=== PATIENT | male | born 1955 | race African-American/Black ===

== ENCOUNTER 2017-09-28 20:36 | Inpatient (IN) | payer OTHER, MEDICAID ==
[~2017-09-28] VITALS: Ht 185.4 cm; Wt 81.6 kg
[~2017-09-28 20:36] MED LIST: ATOR40TA70 PO; CARV3.1242 PO; CETI10TA6 PO; DIPH25CA83 PO; NICO1PAT15 TP; NITR0.4T49 SL
[2017-09-29] MEDS ORDERED: ASPIRIN 81MG TABLET PO STA (03:30)
[2017-09-29] MEDS ORDERED: NITROGLYCERIN OINT 1GM/INCH UDPKT TD STA (03:30)
[2017-09-29 03:58] LABS: BASOPHILS % 0.4 % (0.0-2.0); EOSINOPHILS % 0.7 % (0.0-5.0); HEMATOCRIT. 37.1 % (42.0-52.0); HEMOGLOBIN. 12.4 g/dL (14.0-18.0); MEAN CORPUSCULAR HEMOGLOBIN 33.7 pg (28.0-32.0); MEAN CORPUSCULAR VOLUME 100.2 fL (80.0-94.0); MEAN PLATELET VOLUME 7.8 fl (7.4-10.4); MONOCYTES % 11.6 % (2.0-8.0); NEUTROPHILS % 68.3 % (40.0-76.0); PLATELET 90 x1000/uL (130-400); RED CELL DISTRIBUTION WIDTH 13.7 % (11.6-14.6)
[2017-09-29 04:03] LABS: CARBON DIOXIDE 26 mEq/L (21-32); CHLORIDE 104 mEq/L (98-107); TROPONIN I < 0.02 ng/mL (0.00-0.04)
[2017-09-29] MEDS ORDERED: AZITHROMYCIN 500 MG in DEXT 5% WATER 250 ML IV NR (04:30)
[2017-09-29] MEDS ORDERED: CEFTRIAXONE 1 G PREMIX 50 ML IV NR (04:30)
[2017-09-29] MEDS ORDERED: AZITHROMYCIN 500 MG in SODIUM CHLORIDE 0.9% 250 ML IV NR (05:29)
[2017-09-29] MEDS ORDERED: IPRATROPIUM/ALBUTEROL 0.5-3(2.5)MG/3ML NEB INH PRN (09:45)
[2017-09-29] MEDS ORDERED: GUAIFENESIN 200MG/10ML SUGAR FREE UDC PO PRN (09:45)
[2017-09-29] MEDS ORDERED: NITROGLYCERIN 0.4MG TABLET SL SL PRN (09:45)
[2017-09-29] MEDS ORDERED: ZOLPIDEM TARTRATE 5MG TABLET PO PRN (09:45)
[2017-09-29] MEDS ORDERED: DOCUSATE SODIUM 100MG CAPSULE PO PRN (09:45)
[2017-09-29] MEDS ORDERED: MAGNESIUM/ALUMINUM HYDROXIDE/SIMETHICONE 30ML UDC PO PRN (09:45)
[2017-09-29] MEDS ORDERED: NA PHOS,M-B/NA PHOS,DI-BA ENEMA 118ML PR PRN (09:45)
[2017-09-29] MEDS ORDERED: LORAZEPAM 0.5MG TABLET PO PRN (09:45)
[2017-09-29] MEDS ORDERED: DIPHENHYDRAMINE 50MG/ML VIAL IV PRN (09:45)
[2017-09-29] MEDS ORDERED: ACETAMINOPHEN 325MG TABLET PO PRN (09:45)
[2017-09-29] MEDS ORDERED: CLONIDINE 0.1MG TABLET PO PRN (09:45)
[2017-09-29] MEDS ORDERED: ONDANSETRON HCL 4MG/2ML VIAL IV PRN (09:45)
[2017-09-29] MEDS ORDERED: KETOROLAC 15MG/ML VIAL IV PRN (09:45)
[2017-09-29 11:04] LABS: FOLIC ACID (FOLATE) SERUM 10.8 ng/mL (>5.38)
[2017-09-29] MEDS ORDERED: KETOROLAC 15MG/ML VIAL IV NR (14:30)
[2017-09-29 15:30] LABS: CREATINE KINASE 98 IU/L (39-308); CREATINE KINASE MB FRACTION 1.4 ng/mL (0.5-3.6); TROPONIN I < 0.02 ng/mL (0.00-0.04)
[2017-09-29 18:00] VITALS: BP 99/62
[2017-09-29 20:00] VITALS: BP 130/84
[2017-09-29] MEDS: GUAIFENESIN/DM 600MG/30MG ER TAB 12HR PO SCH (20:55)
[2017-09-29] MEDS: FAMOTIDINE 20MG/2ML VIAL IV SCH (20:55)
[2017-09-29] MEDS ORDERED: INFLUENZA VIRUS VACCINE 0.5ML SYR IM ONE (21:00)
[2017-09-29 23:24] LABS: CREATINE KINASE 106 IU/L (39-308); CREATINE KINASE MB FRACTION 1.3 ng/mL (0.5-3.6); TROPONIN I < 0.02 ng/mL (0.00-0.04)
[2017-09-30 00:17] VITALS: BP 105/78
[2017-09-30 00:33] LABS: *AMPHETAMINES SCREEN URINE NEGATIVE (NEGATIVE); *BARBITURATES SCREEN URINE NEGATIVE (NEGATIVE); *BENZODIAZEPINES SCREEN URINE NEGATIVE (NEGATIVE); *COCAINE SCREEN URINE NEGATIVE (NEGATIVE); CANNABINOID URINE SCREEN NEGATIVE (NEGATIVE); METHADONE URINE SCREEN NEGATIVE (NEGATIVE); OPIATES URINE SCREEN NEGATIVE (NEGATIVE); PHENCYCLIDINE URINE SCREEN NEGATIVE (NEGATIVE)
[2017-09-30 04:00] VITALS: BP 110/69
[2017-09-30] MEDS ORDERED: AZITHROMYCIN 500 MG in DEXT 5% WATER 250 ML IV SCH (06:00)
[2017-09-30 08:00] VITALS: BP 158/70
[2017-09-30] MEDS: FAMOTIDINE 20MG/2ML VIAL IV SCH (08:21)
[2017-09-30] MEDS: GUAIFENESIN/DM 600MG/30MG ER TAB 12HR PO SCH (08:21)
[2017-09-30] MEDS ORDERED: CEFTRIAXONE 1 G PREMIX 50 ML IV SCH (09:00)
[2017-09-30] MEDS ORDERED: ASPIRIN 325MG EC TABLET PO SCH (09:00)
[2017-09-30 11:14] VITALS: BP 104/72
[2017-09-30 12:00] VITALS: BP 117/78
[2017-10-01] MEDS ORDERED: ENOXAPARIN 40MG/0.4ML SYR SUBCUT SCH (11:00)
== END 2017-09-30 13:22 | disposition home or self-care (01) | DRG 139 ==
LOC: ER 20:36 → EDBEDREQ 09-29 05:23 → ENRESERV 09-29 17:13 → 8WST 09-29 17:13
PROVIDERS: ADMIT Internal Medicine; ATTEND Internal Medicine
DX: J18.9 Pneumonia, unspecified organism (principal); E44.0 Moderate protein-calorie malnutrition; R07.89 Other chest pain; D63.8 Anemia in other chronic diseases classified elsewhere; Z68.23 Body mass index [BMI] 23.0-23.9, adult; E78.00 Pure hypercholesterolemia, unspecified; I10 Essential (primary) hypertension; Z59.0 Homelessness; Z87.891 Personal history of nicotine dependence
CPT/HCPCS: 36415; 71045; 80053; 80061; 80305; 82550; 82553; 82607; 82746; 83036; 83540; 83550; 83605; 83880; 84484; 85025; 87040; 90686; 93005; 93970; 96365; 96367; 99285; J0456; J0696; J3490; J7050; J7060

== ENCOUNTER 2018-10-11 17:09 | Inpatient (IN) | payer MEDICAID ==
[~2018-10-11] VITALS: Ht 185.4 cm; Wt 77.6 kg
[2018-10-11] MEDS ORDERED: ONDANSETRON HCL 4MG/2ML INJ IV STA (23:01)
[2018-10-11] MEDS ORDERED: MORPHINE SULFATE 10 MG/ML CPJ IV ONE (23:15)
[2018-10-12 00:09] LABS: CHLORIDE 106 mEq/L (98-107)
[2018-10-12 00:11] LABS: INR 1.1; PROTHROMBIN TIME 11.1 sec (9.1-11.1)
[2018-10-12 00:12] LABS: BASOPHILS % 0.6 % (0.0-2.0); EOSINOPHILS % 2.2 % (0.0-5.0); HEMATOCRIT. 35.2 % (42.0-52.0); HEMOGLOBIN. 11.5 g/dL (14.0-18.0); LYMPHOCYTES % 17.3 % (20.0-50.0); MEAN CORPUSCULAR HEMOGLOBIN 30.3 pg (28.0-32.0); MEAN CORPUSCULAR VOLUME 92.3 fL (80.0-94.0); MEAN PLATELET VOLUME 8.5 fl (7.4-10.4); MONOCYTES % 11.2 % (2.0-8.0); NEUTROPHILS % 68.7 % (40.0-76.0); PLATELET 93 x1000/uL (130-400); RED BLOOD CELL COUNT 3.81 mill/uL (4.7-6.1); RED CELL DISTRIBUTION WIDTH 16.5 % (11.6-14.6)
[2018-10-12] MEDS ORDERED: IOHEXOL-350 100 ML BOTTLE ONE (02:39)
[2018-10-12] MEDS ORDERED: PROPOFOL 200MG/20ML VIAL IV NR (02:45)
[2018-10-12] MEDS ORDERED: LIDOCAINE 1%/EPI 1:100,000 10 ML VIAL IJ ONE (03:45)
[2018-10-12] MEDS ORDERED: LIDOCAINE HCL/EPINEPHRINE 1%-EPI 1:100,000 20 ML VIAL ONE (03:53)
[2018-10-12] MEDS ORDERED: MORPHINE SULFATE 10 MG/ML CPJ IV ONE (06:00)
[2018-10-12] MEDS ORDERED: HYDROMORPHONE HCL/PF 2MG/ML CPJ IV PRN (08:30)
[2018-10-12] MEDS ORDERED: HYDROCODONE/ACETAMINOPHEN 5/325MG TABLET PO PRN ×2 (08:30)
[2018-10-12] MEDS ORDERED: ACETAMINOPHEN 325MG TABLET PO PRN (08:30)
[2018-10-12] MEDS ORDERED: IPRATROPIUM/ALBUTEROL 0.5-3(2.5)MG/3ML NEB HHN PRN (09:00)
[2018-10-12] MEDS: HYDROMORPHONE HCL/PF 2MG/ML CPJ IV PRN ×3 (10:40→20:40)
[2018-10-12 12:00] VITALS: BP 145/94
[2018-10-12] MEDS: NICOTINE 14MG PATCH TD SCH (12:00)
[2018-10-12 12:36] VITALS: BP 145/94
[2018-10-12 16:00] VITALS: BP 135/95
[2018-10-12] MEDS ORDERED: PNEUMOCOCCAL 23-VAL P-SAC VAC 0.5 ML IM ONE (16:00)
[2018-10-12 17:05] LABS: CREATINE KINASE MB FRACTION 5.9 ng/mL (0.5-3.6)
[2018-10-12 17:45] LABS: CLARITY URINE CLEAR (CLEAR); COLOR URINE YELLOW (YELLOW); KETONES URINE NEGATIVE (NEGATIVE); LEUKOCYTE ESTERASE URINE NEGATIVE (NEGATIVE); NITRITE URINE NEGATIVE (NEGATIVE); OCCULT BLOOD URINE NEGATIVE (NEGATIVE); PROTEIN URINE NEGATIVE (NEGATIVE); SPECIFIC GRAVITY URINE 1.035 (1.005-1.030)
[2018-10-12 18:23] LABS: *BENZODIAZEPINES SCREEN URINE NEGATIVE (NEGATIVE); *COCAINE SCREEN URINE NEGATIVE (NEGATIVE); METHADONE URINE SCREEN NEGATIVE (NEGATIVE); OPIATES URINE SCREEN PRESUMTIVE POSITIVE (NEGATIVE)
[2018-10-12 18:24] LABS: *AMPHETAMINES SCREEN URINE NEGATIVE (NEGATIVE); *BARBITURATES SCREEN URINE NEGATIVE (NEGATIVE); CANNABINOID URINE SCREEN NEGATIVE (NEGATIVE); PHENCYCLIDINE URINE SCREEN NEGATIVE (NEGATIVE)
[2018-10-12 20:00] VITALS: BP 131/96
[2018-10-13] VITALS (7 sets, daily range): BP systolic 116–131; BP diastolic 76–91
[2018-10-13] MEDS: BUDESONIDE 0.5MG/2ML NEB HHN SCH ×3 (01:55→21:04)
[2018-10-13] MEDS: IPRATROPIUM/ALBUTEROL 0.5-3(2.5)MG/3ML NEB HHN SCH ×4 (01:56→21:03)
[2018-10-13] MEDS: HYDROMORPHONE HCL/PF 2MG/ML CPJ IV PRN ×5 (03:43→22:48)
[2018-10-13 08:32] LABS: BASOPHILS % 0.2 % (0.0-2.0); EOSINOPHILS % 1.5 % (0.0-5.0); HEMATOCRIT. 36.3 % (42.0-52.0); HEMOGLOBIN. 11.8 g/dL (14.0-18.0); LYMPHOCYTES % 13.2 % (20.0-50.0); MEAN CORPUSCULAR HEMOGLOBIN 30.2 pg (28.0-32.0); MEAN CORPUSCULAR VOLUME 92.4 fL (80.0-94.0); MEAN PLATELET VOLUME 8.3 fl (7.4-10.4); MONOCYTES % 11.9 % (2.0-8.0); NEUTROPHILS % 73.2 % (40.0-76.0); PLATELET 105 x1000/uL (130-400); RED BLOOD CELL COUNT 3.93 mill/uL (4.7-6.1); RED CELL DISTRIBUTION WIDTH 16.4 % (11.6-14.6)
[2018-10-13] MEDS: NICOTINE 14MG PATCH TD SCH (09:00)
[2018-10-13] MEDS ORDERED: HYDROCODONE/ACETAMINOPHEN 10/325MG TABLET PO PRN (19:20)
[2018-10-13] MEDS: DIPHENHYDRAMINE 50MG CAPSULE PO PRN (22:47)
[2018-10-14] VITALS: BP 124/75
[2018-10-14] MEDS: IPRATROPIUM/ALBUTEROL 0.5-3(2.5)MG/3ML NEB HHN SCH ×4 (01:04→20:56)
[2018-10-14 04:00] VITALS: BP 126/85
[2018-10-14] MEDS: HYDROMORPHONE HCL/PF 2MG/ML CPJ IV PRN ×4 (04:16→22:51)
[2018-10-14 07:23] LABS: BASOPHILS % 0.3 % (0.0-2.0); EOSINOPHILS % 1.7 % (0.0-5.0); HEMATOCRIT. 32.5 % (42.0-52.0); HEMOGLOBIN. 10.6 g/dL (14.0-18.0); LYMPHOCYTES % 11.6 % (20.0-50.0); MEAN CORPUSCULAR VOLUME 92.3 fL (80.0-94.0); MEAN PLATELET VOLUME 8.3 fl (7.4-10.4); MONOCYTES % 11.8 % (2.0-8.0); NEUTROPHILS % 74.6 % (40.0-76.0); PLATELET 84 x1000/uL (130-400); RED BLOOD CELL COUNT 3.52 mill/uL (4.7-6.1); RED CELL DISTRIBUTION WIDTH 16.5 % (11.6-14.6)
[2018-10-14 08:00] VITALS: BP 129/72
[2018-10-14] MEDS: BUDESONIDE 0.5MG/2ML NEB HHN SCH ×2 (08:11→20:56)
[2018-10-14] MEDS: NICOTINE 14MG PATCH TD SCH (09:00)
[2018-10-14 12:00] VITALS: BP 127/94
[2018-10-14] MEDS ORDERED: HYDROMORPHONE HCL/PF 2MG/ML CPJ IV PRN (12:30)
[2018-10-14] MEDS ORDERED: DEXT 5%/0.45% NACL 1000ML 1,000 ML IV SCH (12:30)
[2018-10-14] MEDS: HYDROCODONE/ACETAMINOPHEN 10/325MG TABLET PO PRN ×2 (13:16→18:21)
[2018-10-14 16:00] VITALS: BP 122/78
[2018-10-14] MEDS: SODIUM CHLORIDE 0.9% 1,000 ML IV SCH (16:39)
[2018-10-14 20:00] VITALS: BP_SYST 123; BP_SYST 178; BP_DIAS 71; BP_DIAS 86
[2018-10-14] MEDS: DIPHENHYDRAMINE 50MG CAPSULE PO PRN (22:54)
[2018-10-15] VITALS: BP 129/80
[2018-10-15] MEDS: SODIUM CHLORIDE 0.9% 1,000 ML IV SCH ×3 (01:00→21:05)
[2018-10-15] MEDS: IPRATROPIUM/ALBUTEROL 0.5-3(2.5)MG/3ML NEB HHN SCH ×4 (01:02→21:14)
[2018-10-15 04:00] VITALS: BP 116/85
[2018-10-15] MEDS: HYDROMORPHONE HCL/PF 2MG/ML CPJ IV PRN ×2 (04:01→18:13)
[2018-10-15 08:00] VITALS: BP 109/81
[2018-10-15] MEDS: NICOTINE 14MG PATCH TD SCH (09:00)
[2018-10-15 09:32] LABS: BASOPHILS % 0.2 % (0.0-2.0); HEMATOCRIT. 35.7 % (42.0-52.0); HEMOGLOBIN. 11.6 g/dL (14.0-18.0); LYMPHOCYTES % 7.1 % (20.0-50.0); MEAN CORPUSCULAR HEMOGLOBIN 30.6 pg (28.0-32.0); MEAN PLATELET VOLUME 8.3 fl (7.4-10.4); MONOCYTES % 9.4 % (2.0-8.0); NEUTROPHILS % 82.3 % (40.0-76.0); PLATELET 91 x1000/uL (130-400); RED BLOOD CELL COUNT 3.79 mill/uL (4.7-6.1); RED CELL DISTRIBUTION WIDTH 15.9 % (11.6-14.6)
[2018-10-15] MEDS: BUDESONIDE 0.5MG/2ML NEB HHN SCH (10:40)
[2018-10-15] MEDS: HYDROCODONE/ACETAMINOPHEN 10/325MG TABLET PO PRN ×2 (10:42→18:07)
[2018-10-15] MEDS: TAMSULOSIN HCL 0.4MG SR CAPSULE PO SCH (10:42)
[2018-10-15 10:53] LABS: CHLORIDE 108 mEq/L (98-107)
[2018-10-15] MEDS ORDERED: MAGNESIUM 2 G PREMIX 50 ML IV NR (11:00)
[2018-10-15 11:02] LABS: PHOSPHORUS 2.3 mg/dL (2.5-4.9)
[2018-10-15 12:00] VITALS: BP 116/80
[2018-10-15] MEDS: BENZONATATE 100MG CAPSULE PO PRN (14:27)
[2018-10-15 20:00] VITALS: BP 130/88
[2018-10-16] VITALS: BP 98/61
[2018-10-16] MEDS: IPRATROPIUM/ALBUTEROL 0.5-3(2.5)MG/3ML NEB HHN SCH ×4 (01:09→20:57)
[2018-10-16] MEDS: LORAZEPAM 2MG/ML CPJ IV PRN ×2 (01:17→08:49)
[2018-10-16] MEDS: SODIUM CHLORIDE 0.9% 1,000 ML IV SCH ×2 (06:39)
[2018-10-16 08:00] VITALS: BP 94/63
[2018-10-16] MEDS: TAMSULOSIN HCL 0.4MG SR CAPSULE PO SCH ×2 (08:49→08:59)
[2018-10-16] MEDS: NICOTINE 14MG PATCH TD SCH (08:50)
[2018-10-16] MEDS ORDERED: POTASSIUM-SODIUM PHOSPHATE POWDER PACKET PO NR (10:30)
[2018-10-16 11:46] LABS: CHLORIDE 110 mEq/L (98-107)
[2018-10-16 11:49] LABS: PHOSPHORUS 1.8 mg/dL (2.5-4.9)
[2018-10-16 13:34] LABS: HEMATOCRIT. 36.8 % (42.0-52.0); HEMOGLOBIN. 11.8 g/dL (14.0-18.0); MEAN CORPUSCULAR HEMOGLOBIN 30.6 pg (28.0-32.0); MEAN CORPUSCULAR VOLUME 94.9 fL (80.0-94.0); PLATELET 66 x1000/uL (130-400); RED BLOOD CELL COUNT 3.87 mill/uL (4.7-6.1); RED CELL DISTRIBUTION WIDTH 16.5 % (11.6-14.6)
[2018-10-16] MEDS ORDERED: PREDNISONE 20MG TABLET PO NR (15:00)
[2018-10-16 16:00] VITALS: BP 92/56
[2018-10-16 16:01] LABS: BG BASE EXCESS -1.4 mmol/L (-2.0-2.0); BG CARBOXYHEMOGLOBIN 0.9 % (0.5-1.5); BG DEOXYHEMOGLOBIN 16.1 % (0.0-5.0); BG METHEMOGLOBIN 0.2 % (0.0-1.5); BG OXYGEN SATURATION 83.7 % (92.0-98.5); BG OXYHEMOGLOBIN 82.8 % (94.0-97.0); BG PCO2 37.4 mmHg (35.0-45.0); BG PH 7.407 (7.350-7.450); BG SAMPLE SITE RIGHT RADIAL; BG TOTAL HEMOGLOBIN 11.2 g/dL (12.0-18.0); BG VENT MODE ROOM AIR
[2018-10-16 18:49] LABS: PLATELET ESTIMATE DECREASED
[2018-10-16 20:00] VITALS: BP 119/72
[2018-10-17] VITALS: BP 104/60
[2018-10-17] MEDS: IPRATROPIUM/ALBUTEROL 0.5-3(2.5)MG/3ML NEB HHN SCH ×4 (01:44→22:26)
[2018-10-17 04:00] VITALS: BP 96/70
[2018-10-17 08:00] VITALS: BP 102/66
[2018-10-17] MEDS: TAMSULOSIN HCL 0.4MG SR CAPSULE PO SCH (08:46)
[2018-10-17] MEDS: PREDNISONE 20MG TABLET PO SCH (08:46)
[2018-10-17] MEDS: NICOTINE 14MG PATCH TD SCH (08:47)
[2018-10-17] MEDS ORDERED: POTASSIUM PHOS,M-BASIC-D-BASIC 20 MMOL in DEXT 5% WATER 243.3333 ML IV ONE (11:00)
[2018-10-17 16:24] VITALS: BP 118/74
[2018-10-17 16:25] LABS: HEMATOCRIT. 36.8 % (42.0-52.0); HEMOGLOBIN. 11.8 g/dL (14.0-18.0); MEAN CORPUSCULAR HEMOGLOBIN 30.1 pg (28.0-32.0); MEAN CORPUSCULAR VOLUME 93.4 fL (80.0-94.0); MEAN PLATELET VOLUME 8.1 fl (7.4-10.4); PLATELET 65 x1000/uL (130-400); RED BLOOD CELL COUNT 3.94 mill/uL (4.7-6.1); RED CELL DISTRIBUTION WIDTH 16.4 % (11.6-14.6)
[2018-10-17 16:53] LABS: CHLORIDE 105 mEq/L (98-107)
[2018-10-17 16:58] LABS: PHOSPHORUS 2.8 mg/dL (2.5-4.9)
[2018-10-17 18:16] LABS: PLATELET ESTIMATE DECREASED
[2018-10-17 20:00] VITALS: BP 102/64
[2018-10-18] VITALS: BP 105/68
[2018-10-18] MEDS: BENZONATATE 100MG CAPSULE PO PRN (00:13)
[2018-10-18] MEDS: HYDROCODONE/ACETAMINOPHEN 10/325MG TABLET PO PRN (00:18)
[2018-10-18] MEDS: IPRATROPIUM/ALBUTEROL 0.5-3(2.5)MG/3ML NEB HHN SCH ×3 (02:00→22:17)
[2018-10-18] MEDS: HYDROMORPHONE HCL/PF 2MG/ML CPJ IV PRN (02:24)
[2018-10-18 04:00] VITALS: BP 110/76
[2018-10-18] MEDS: LORAZEPAM 2MG/ML CPJ IV PRN ×3 (05:24→20:52)
[2018-10-18 07:19] LABS: HEMATOCRIT. 31.2 % (42.0-52.0); HEMOGLOBIN. 10.3 g/dL (14.0-18.0); MEAN CORPUSCULAR HEMOGLOBIN 30.5 pg (28.0-32.0); MEAN CORPUSCULAR VOLUME 92.1 fL (80.0-94.0); MEAN PLATELET VOLUME 8.5 fl (7.4-10.4); PLATELET 71 x1000/uL (130-400); RED BLOOD CELL COUNT 3.39 mill/uL (4.7-6.1); RED CELL DISTRIBUTION WIDTH 16.2 % (11.6-14.6)
[2018-10-18 07:40] LABS: CHLORIDE 106 mEq/L (98-107)
[2018-10-18 08:00] VITALS: BP 103/64
[2018-10-18] MEDS: NICOTINE 14MG PATCH TD SCH (09:00)
[2018-10-18] MEDS: TAMSULOSIN HCL 0.4MG SR CAPSULE PO SCH (09:19)
[2018-10-18] MEDS: PREDNISONE 20MG TABLET PO SCH (09:20)
[2018-10-18 10:22] LABS: PLATELET ESTIMATE DECREASED
[2018-10-18] MEDS ORDERED: LORAZEPAM 2MG/ML CPJ IV SCH (10:30)
[2018-10-18 16:24] VITALS: BP 123/79
[2018-10-18 20:00] VITALS: BP 116/84
[2018-10-19] VITALS: BP 107/68
[2018-10-19 04:00] VITALS: BP 104/58
[2018-10-19] MEDS: IPRATROPIUM/ALBUTEROL 0.5-3(2.5)MG/3ML NEB HHN SCH ×4 (04:01→20:57)
[2018-10-19] MEDS: HYDROMORPHONE HCL/PF 2MG/ML CPJ IV PRN ×2 (05:57→22:40)
[2018-10-19 08:00] VITALS: BP 120/74
[2018-10-19] MEDS: NICOTINE 14MG PATCH TD SCH (09:00)
[2018-10-19 09:47] LABS: HEMATOCRIT. 32.7 % (42.0-52.0); HEMOGLOBIN. 10.8 g/dL (14.0-18.0); MEAN CORPUSCULAR HEMOGLOBIN 30.5 pg (28.0-32.0); MEAN CORPUSCULAR VOLUME 92.5 fL (80.0-94.0); MEAN PLATELET VOLUME 8.6 fl (7.4-10.4); PLATELET 75 x1000/uL (130-400); RED BLOOD CELL COUNT 3.53 mill/uL (4.7-6.1); RED CELL DISTRIBUTION WIDTH 16.2 % (11.6-14.6)
[2018-10-19] MEDS: TAMSULOSIN HCL 0.4MG SR CAPSULE PO SCH (09:56)
[2018-10-19] MEDS: PREDNISONE 20MG TABLET PO SCH (09:56)
[2018-10-19 10:02] LABS: CHLORIDE 104 mEq/L (98-107)
[2018-10-19 10:16] LABS: PHOSPHORUS 3.3 mg/dL (2.5-4.9)
[2018-10-19 12:00] VITALS: BP 98/69
[2018-10-19 16:00] VITALS: BP 110/76
[2018-10-19 20:00] VITALS: BP 129/84
[2018-10-19 21:26] LABS: PLATELET ESTIMATE DECREASED
[2018-10-20] VITALS: BP 109/74
[2018-10-20] MEDS: IPRATROPIUM/ALBUTEROL 0.5-3(2.5)MG/3ML NEB HHN SCH ×4 (02:23→21:14)
[2018-10-20] MEDS: DIPHENHYDRAMINE 50MG CAPSULE PO PRN (02:58)
[2018-10-20] MEDS: HYDROMORPHONE HCL/PF 2MG/ML CPJ IV PRN ×3 (02:59→18:51)
[2018-10-20 04:00] VITALS: BP 124/79
[2018-10-20 08:00] VITALS: BP 116/84
[2018-10-20] MEDS: TAMSULOSIN HCL 0.4MG SR CAPSULE PO SCH (08:57)
[2018-10-20] MEDS: PREDNISONE 20MG TABLET PO SCH (08:57)
[2018-10-20 12:00] VITALS: BP 114/77
[2018-10-20 16:00] VITALS: BP 110/74
[2018-10-20 20:00] VITALS: BP 124/84
[2018-10-20] MEDS: BENZONATATE 100MG CAPSULE PO PRN (22:09)
[2018-10-21] VITALS: BP 114/79
[2018-10-21] MEDS: HYDROMORPHONE HCL/PF 2MG/ML CPJ IV PRN ×4 (00:25→20:57)
[2018-10-21] MEDS: IPRATROPIUM/ALBUTEROL 0.5-3(2.5)MG/3ML NEB HHN SCH ×4 (03:15→21:43)
[2018-10-21 04:00] VITALS: BP 118/80
[2018-10-21 06:49] LABS: BASOPHILS % 0.2 % (0.0-2.0); EOSINOPHILS % 0.5 % (0.0-5.0); HEMATOCRIT. 30.6 % (42.0-52.0); LYMPHOCYTES % 9.6 % (20.0-50.0); MEAN CORPUSCULAR HEMOGLOBIN 30.1 pg (28.0-32.0); MEAN CORPUSCULAR VOLUME 92.4 fL (80.0-94.0); MEAN PLATELET VOLUME 8.3 fl (7.4-10.4); NEUTROPHILS % 79.7 % (40.0-76.0); PLATELET 66 x1000/uL (130-400); RED BLOOD CELL COUNT 3.31 mill/uL (4.7-6.1); RED CELL DISTRIBUTION WIDTH 16.2 % (11.6-14.6)
[2018-10-21 07:32] LABS: CHLORIDE 100 mEq/L (98-107)
[2018-10-21 08:27] VITALS: BP 113/64
[2018-10-21] MEDS: NICOTINE 14MG PATCH TD SCH (09:00)
[2018-10-21] MEDS ORDERED: PIPERACILLIN/TAZ 3.375G PREMIX 50 ML IV SCH (09:00)
[2018-10-21] MEDS: PREDNISONE 20MG TABLET PO SCH (09:23)
[2018-10-21] MEDS: TAMSULOSIN HCL 0.4MG SR CAPSULE PO SCH (09:24)
[2018-10-21] MEDS: PIPERACILLIN/TAZ 3.375G PREMIX 50 ML IV SCH ×2 (11:49→17:51)
[2018-10-21 12:00] VITALS: BP 97/61
[2018-10-21 16:00] VITALS: BP 98/66
[2018-10-21 20:00] VITALS: BP 108/72
[2018-10-22] VITALS: BP 97/66
[2018-10-22] MEDS: HYDROMORPHONE HCL/PF 2MG/ML CPJ IV PRN ×5 (00:53→22:07)
[2018-10-22] MEDS: IPRATROPIUM/ALBUTEROL 0.5-3(2.5)MG/3ML NEB HHN SCH ×4 (01:10→19:46)
[2018-10-22] MEDS: PIPERACILLIN/TAZ 3.375G PREMIX 50 ML IV SCH ×2 (03:52→09:30)
[2018-10-22 04:00] VITALS: BP 108/68
[2018-10-22 08:18] VITALS: BP 103/76
[2018-10-22] MEDS: NICOTINE 14MG PATCH TD SCH (09:00)
[2018-10-22] MEDS: TAMSULOSIN HCL 0.4MG SR CAPSULE PO SCH (09:30)
[2018-10-22] MEDS: PREDNISONE 20MG TABLET PO SCH (09:30)
[2018-10-22 12:10] VITALS: BP 127/58
[2018-10-22 12:28] LABS: BASOPHILS % 0.2 % (0.0-2.0); EOSINOPHILS % 1.4 % (0.0-5.0); HEMATOCRIT. 32.4 % (42.0-52.0); HEMOGLOBIN. 10.6 g/dL (14.0-18.0); LYMPHOCYTES % 14.6 % (20.0-50.0); MEAN CORPUSCULAR HEMOGLOBIN 30.3 pg (28.0-32.0); MEAN CORPUSCULAR VOLUME 92.6 fL (80.0-94.0); MEAN PLATELET VOLUME 9.5 fl (7.4-10.4); MONOCYTES % 9.8 % (2.0-8.0); PLATELET 95 x1000/uL (130-400); RED CELL DISTRIBUTION WIDTH 16.1 % (11.6-14.6)
[2018-10-22 12:33] LABS: INR 1.1; PARTIAL THROMBOPLASTIN TIME 30.2 sec (23.4-31.0); PROTHROMBIN TIME 11.5 sec (9.1-11.1)
[2018-10-22 16:00] VITALS: BP 102/68
[2018-10-22 18:41] LABS: CLARITY URINE CLEAR (CLEAR); COLOR URINE DARK YELLOW (YELLOW); KETONES URINE TRACE (NEGATIVE); LEUKOCYTE ESTERASE URINE NEGATIVE (NEGATIVE); NITRITE URINE NEGATIVE (NEGATIVE); OCCULT BLOOD URINE NEGATIVE (NEGATIVE); PROTEIN URINE NEGATIVE (NEGATIVE); SPECIFIC GRAVITY URINE 1.022 (1.005-1.030)
[2018-10-22 20:00] VITALS: BP 112/68
[2018-10-23] VITALS (14 sets, daily range): BP systolic 86–149; BP diastolic 44–73
[2018-10-23] MEDS: IPRATROPIUM/ALBUTEROL 0.5-3(2.5)MG/3ML NEB HHN SCH ×4 (01:41→22:06)
[2018-10-23] MEDS: HYDROMORPHONE HCL/PF 2MG/ML CPJ IV PRN ×3 (03:06→20:54)
[2018-10-23 06:57] LABS: BASOPHILS % 0.1 % (0.0-2.0); EOSINOPHILS % 0.4 % (0.0-5.0); HEMATOCRIT. 31.7 % (42.0-52.0); HEMOGLOBIN. 10.2 g/dL (14.0-18.0); MEAN CORPUSCULAR HEMOGLOBIN 29.7 pg (28.0-32.0); MEAN CORPUSCULAR VOLUME 92.2 fL (80.0-94.0); MEAN PLATELET VOLUME 9.2 fl (7.4-10.4); MONOCYTES % 10.8 % (2.0-8.0); NEUTROPHILS % 78.7 % (40.0-76.0); PLATELET 100 x1000/uL (130-400); RED BLOOD CELL COUNT 3.44 mill/uL (4.7-6.1); RED CELL DISTRIBUTION WIDTH 15.9 % (11.6-14.6)
[2018-10-23] MEDS: TAMSULOSIN HCL 0.4MG SR CAPSULE PO SCH (09:00)
[2018-10-23] MEDS: NICOTINE 14MG PATCH TD SCH (09:00)
[2018-10-23] MEDS: PREDNISONE 20MG TABLET PO SCH (09:00)
[2018-10-23] MEDS ORDERED: TETRACAINE/BENZOCAINE/BUTAMBEN 20 GM SPRAY MM ONE (13:23)
[2018-10-23] MEDS ORDERED: PROPOFOL 200MG/20ML VIAL IV ONE (15:36)
[2018-10-23] MEDS ORDERED: FENTANYL CITRATE/PF 50MCG/ML 2ML VIAL ONE (15:36)
[2018-10-23] MEDS ORDERED: PHENYLEPHRINE HCL 10 MG/ML 1ML (IV VIAL) IV ONE (15:45)
[2018-10-23] MEDS ORDERED: DEXAMETHASONE 4MG/ML 1ML VIAL ONE (16:40)
[2018-10-23] MEDS ORDERED: BUPIVACAINE HCL 0.5% (5MG/ML) 50ML ONE (17:26)
[2018-10-23] MEDS ORDERED: SKIN ADHESIVE 0.7 GM EA TOP ONE (17:27)
[2018-10-23] MEDS ORDERED: GLYCOPYRROLATE 0.2 MG/ML 2ML VIAL ONE (17:30)
[2018-10-23] MEDS ORDERED: NEOSTIGMINE METHYLSULFATE 1MG/ML 10 ML VIAL ONE (17:31)
[2018-10-23] MEDS ORDERED: ESMOLOL HCL 10MG/ML 10ML VIAL IV ONE (17:52)
[2018-10-23] MEDS ORDERED: HYDROMORPHONE HCL/PF 2MG/ML (OR) ONE (17:57)
[2018-10-23] MEDS ORDERED: HYDROMORPHONE HCL/PF 2MG/ML CPJ IV PRN (18:30)
[2018-10-23] MEDS: ONDANSETRON HCL 4MG/2ML INJ IV PRN (18:52)
[2018-10-23 19:55] LABS: HEMATOCRIT. 28.4 % (42.0-52.0); HEMOGLOBIN. 9.1 g/dL (14.0-18.0); MEAN CORPUSCULAR VOLUME 93.2 fL (80.0-94.0); PLATELET 84 x1000/uL (130-400); RED BLOOD CELL COUNT 3.05 mill/uL (4.7-6.1); RED CELL DISTRIBUTION WIDTH 15.9 % (11.6-14.6)
[2018-10-23 19:57] LABS: CHLORIDE 105 mEq/L (98-107)
[2018-10-23 20:25] LABS: PLATELET ESTIMATE DECREASED
[2018-10-23] MEDS: SODIUM CHLORIDE 0.9% 1,000 ML IV SCH (21:04)
[2018-10-24] VITALS (80 sets, daily range): BP systolic 83–177; BP diastolic 23–108
[2018-10-24] MEDS ORDERED: LORAZEPAM 2MG/ML CPJ ONE (00:23)
[2018-10-24] MEDS: LORAZEPAM 2MG/ML CPJ IV PRN (00:34)
[2018-10-24] MEDS: IPRATROPIUM/ALBUTEROL 0.5-3(2.5)MG/3ML NEB HHN SCH ×4 (02:10→21:11)
[2018-10-24 05:36] LABS: HEMATOCRIT. 28.7 % (42.0-52.0); HEMOGLOBIN. 9.5 g/dL (14.0-18.0); MEAN CORPUSCULAR HEMOGLOBIN 30.8 pg (28.0-32.0); MEAN CORPUSCULAR VOLUME 92.9 fL (80.0-94.0); MEAN PLATELET VOLUME 9.4 fl (7.4-10.4); RED BLOOD CELL COUNT 3.09 mill/uL (4.7-6.1); RED CELL DISTRIBUTION WIDTH 15.8 % (11.6-14.6)
[2018-10-24 05:41] LABS: CHLORIDE 107 mEq/L (98-107)
[2018-10-24 05:46] LABS: PLATELET 127 x1000/uL (130-400)
[2018-10-24] MEDS: HYDROMORPHONE HCL/PF 2MG/ML CPJ IV PRN ×7 (08:59→21:42)
[2018-10-24 09:03] LABS: PLATELET ESTIMATE SLIGHTLY DECREASED
[2018-10-24] MEDS: TAMSULOSIN HCL 0.4MG SR CAPSULE PO SCH ×2 (09:09→09:47)
[2018-10-24] MEDS: NICOTINE 14MG PATCH TD SCH ×2 (09:42→09:47)
[2018-10-24] MEDS: SODIUM CHLORIDE 0.9% 1,000 ML IV SCH ×2 (09:46→22:47)
[2018-10-24] MEDS: LEVOFLOXACIN 500MG PREMIX 100 ML IV SCH (11:36)
[2018-10-24] MEDS: DIPHENHYDRAMINE 50MG/ML VIAL IV PRN (20:25)
[2018-10-24] MEDS: FAMOTIDINE 20MG TABLET PO SCH (20:28)
[2018-10-25] VITALS (49 sets, daily range): BP systolic 86–159; BP diastolic 24–111
[2018-10-25] MEDS: IPRATROPIUM/ALBUTEROL 0.5-3(2.5)MG/3ML NEB HHN SCH ×4 (02:10→20:18)
[2018-10-25 07:03] LABS: HEMATOCRIT. 31.3 % (42.0-52.0); HEMOGLOBIN. 10.2 g/dL (14.0-18.0); MEAN CORPUSCULAR HEMOGLOBIN 30.3 pg (28.0-32.0); MEAN CORPUSCULAR VOLUME 93.1 fL (80.0-94.0); MEAN PLATELET VOLUME 8.6 fl (7.4-10.4); PLATELET 107 x1000/uL (130-400); RED BLOOD CELL COUNT 3.37 mill/uL (4.7-6.1); RED CELL DISTRIBUTION WIDTH 15.9 % (11.6-14.6)
[2018-10-25 07:17] LABS: CHLORIDE 104 mEq/L (98-107)
[2018-10-25] MEDS: FAMOTIDINE 20MG TABLET PO SCH ×2 (09:00→21:13)
[2018-10-25] MEDS: DIPHENHYDRAMINE 50MG/ML VIAL IV PRN ×2 (09:23→16:34)
[2018-10-25] MEDS: HYDROMORPHONE HCL/PF 2MG/ML CPJ IV PRN ×3 (09:24→20:00)
[2018-10-25 11:00] LABS: PLATELET ESTIMATE SLIGHTLY DECREASED
[2018-10-25] MEDS: LEVOFLOXACIN 500MG PREMIX 100 ML IV SCH (11:25)
[2018-10-25] MEDS: SODIUM CHLORIDE 0.9% 1,000 ML IV SCH (11:25)
[2018-10-25] MEDS: LORAZEPAM 2MG/ML CPJ IV PRN (21:13)
[2018-10-26] VITALS (46 sets, daily range): BP systolic 92–168; BP diastolic 53–102
[2018-10-26] MEDS: DIPHENHYDRAMINE 50MG/ML VIAL IV PRN (00:13)
[2018-10-26] MEDS: IPRATROPIUM/ALBUTEROL 0.5-3(2.5)MG/3ML NEB HHN SCH ×4 (01:30→21:01)
[2018-10-26] MEDS: SODIUM CHLORIDE 0.9% 1,000 ML IV SCH ×2 (03:54→15:25)
[2018-10-26] MEDS: HYDROMORPHONE HCL/PF 2MG/ML CPJ IV PRN (05:04)
[2018-10-26] MEDS ORDERED: NALOXONE HCL 0.4 MG/ML 1ML VIAL IV SCH (08:45)
[2018-10-26] MEDS: FAMOTIDINE 20MG TABLET PO SCH ×2 (09:00→21:32)
[2018-10-26] MEDS: TAMSULOSIN HCL 0.4MG SR CAPSULE PO SCH (09:00)
[2018-10-26] MEDS ORDERED: NALOXONE HCL 0.4 MG/ML 1ML VIAL IV ONE (11:15)
[2018-10-26] MEDS: LEVOFLOXACIN 500MG PREMIX 100 ML IV SCH (11:21)
[2018-10-26] MEDS: NICOTINE 14MG PATCH TD SCH (11:21)
[2018-10-26 13:46] LABS: HEMATOCRIT. 27.1 % (42.0-52.0); HEMOGLOBIN. 8.8 g/dL (14.0-18.0); MEAN CORPUSCULAR HEMOGLOBIN 30.5 pg (28.0-32.0); MEAN CORPUSCULAR VOLUME 93.9 fL (80.0-94.0); MEAN PLATELET VOLUME 8.2 fl (7.4-10.4); PLATELET 80 x1000/uL (130-400); RED BLOOD CELL COUNT 2.89 mill/uL (4.7-6.1); RED CELL DISTRIBUTION WIDTH 15.5 % (11.6-14.6)
[2018-10-26 13:52] LABS: CHLORIDE 107 mEq/L (98-107)
[2018-10-26 13:58] LABS: PHOSPHORUS 1.6 mg/dL (2.5-4.9)
[2018-10-26 14:19] LABS: PLATELET ESTIMATE DECREASED
[2018-10-26] MEDS: MORPHINE SULFATE 4 MG/ML CPJ (NOT FOR IM USE) IV PRN (20:35)
[2018-10-27] VITALS (34 sets, daily range): BP systolic 96–146; BP diastolic 29–95
[2018-10-27] MEDS: IPRATROPIUM/ALBUTEROL 0.5-3(2.5)MG/3ML NEB HHN SCH ×4 (00:30→19:59)
[2018-10-27] MEDS: MORPHINE SULFATE 4 MG/ML CPJ (NOT FOR IM USE) IV PRN ×3 (02:02→20:07)
[2018-10-27 05:39] LABS: BASOPHILS % 0.3 % (0.0-2.0); EOSINOPHILS % 0.5 % (0.0-5.0); HEMATOCRIT. 27.8 % (42.0-52.0); LYMPHOCYTES % 11.7 % (20.0-50.0); MEAN CORPUSCULAR HEMOGLOBIN 30.5 pg (28.0-32.0); MEAN CORPUSCULAR VOLUME 94.1 fL (80.0-94.0); MEAN PLATELET VOLUME 8.5 fl (7.4-10.4); MONOCYTES % 7.1 % (2.0-8.0); NEUTROPHILS % 80.4 % (40.0-76.0); PLATELET 79 x1000/uL (130-400); RED BLOOD CELL COUNT 2.95 mill/uL (4.7-6.1); RED CELL DISTRIBUTION WIDTH 15.7 % (11.6-14.6)
[2018-10-27] MEDS: SODIUM CHLORIDE 0.9% 1,000 ML IV SCH ×2 (05:40→18:21)
[2018-10-27 05:45] LABS: CHLORIDE 108 mEq/L (98-107)
[2018-10-27] MEDS: NICOTINE 14MG PATCH TD SCH (09:00)
[2018-10-27] MEDS: FAMOTIDINE 20MG TABLET PO SCH ×2 (09:16→21:13)
[2018-10-27] MEDS: TAMSULOSIN HCL 0.4MG SR CAPSULE PO SCH (09:22)
[2018-10-27] MEDS: LEVOFLOXACIN 500MG PREMIX 100 ML IV SCH (11:42)
[2018-10-27] MEDS: GUAIFENESIN-DM 200MG-20MG/10ML UDC PO PRN (15:23)
[2018-10-27] MEDS: POTASSIUM-SODIUM PHOSPHATE POWDER PACKET PO SCH (17:55)
[2018-10-27] MEDS: LORAZEPAM 2MG/ML CPJ IV PRN (19:39)
[2018-10-28] VITALS (28 sets, daily range): BP systolic 73–180; BP diastolic 32–119
[2018-10-28] MEDS: MORPHINE SULFATE 4 MG/ML CPJ (NOT FOR IM USE) IV PRN (00:52)
[2018-10-28] MEDS: IPRATROPIUM/ALBUTEROL 0.5-3(2.5)MG/3ML NEB HHN SCH ×4 (01:40→21:11)
[2018-10-28 06:02] LABS: CHLORIDE 104 mEq/L (98-107)
[2018-10-28 06:20] LABS: BASOPHILS % 0.4 % (0.0-2.0); EOSINOPHILS % 0.7 % (0.0-5.0); HEMATOCRIT. 30.6 % (42.0-52.0); HEMOGLOBIN. 9.9 g/dL (14.0-18.0); LYMPHOCYTES % 12.1 % (20.0-50.0); MEAN CORPUSCULAR HEMOGLOBIN 30.6 pg (28.0-32.0); MEAN CORPUSCULAR VOLUME 94.9 fL (80.0-94.0); MEAN PLATELET VOLUME 8.6 fl (7.4-10.4); MONOCYTES % 9.6 % (2.0-8.0); NEUTROPHILS % 77.2 % (40.0-76.0); PLATELET 84 x1000/uL (130-400); RED BLOOD CELL COUNT 3.22 mill/uL (4.7-6.1); RED CELL DISTRIBUTION WIDTH 16.3 % (11.6-14.6)
[2018-10-28] MEDS: SODIUM CHLORIDE 0.9% 1,000 ML IV SCH ×2 (08:15→20:33)
[2018-10-28] MEDS: NICOTINE 14MG PATCH TD SCH (09:00)
[2018-10-28] MEDS: FAMOTIDINE 20MG TABLET PO SCH ×2 (09:13→20:33)
[2018-10-28] MEDS: POTASSIUM-SODIUM PHOSPHATE POWDER PACKET PO SCH ×2 (09:13→17:08)
[2018-10-28] MEDS: TAMSULOSIN HCL 0.4MG SR CAPSULE PO SCH (09:15)
[2018-10-28 09:36] LABS: BG BASE EXCESS 2.3 mmol/L (-2.0-2.0); BG CARBOXYHEMOGLOBIN 0.5 % (0.5-1.5); BG DEOXYHEMOGLOBIN 5.2 % (0.0-5.0); BG FRACTION INSPIRED OXYGEN 60; BG HCO3 ACT 26.1 mmol/L (22.0-26.0); BG METHEMOGLOBIN 0.1 % (0.0-1.5); BG OXYGEN SATURATION 94.8 % (92.0-98.5); BG OXYHEMOGLOBIN 94.2 % (94.0-97.0); BG PCO2 37.4 mmHg (35.0-45.0); BG PH 7.461 (7.350-7.450); BG PO2 76.2 mmHg (75.0-100.0); BG SAMPLE SITE RIGHT RADIAL; BG TOTAL HEMOGLOBIN 10.7 g/dL (12.0-18.0); BG VENT MODE VAPOTHERM
[2018-10-28] MEDS: LEVOFLOXACIN 500MG PREMIX 100 ML IV SCH (11:50)
[2018-10-28] MEDS: ONDANSETRON HCL 4MG/2ML INJ IV PRN (20:46)
[2018-10-28] MEDS: LORAZEPAM 2MG/ML CPJ IV PRN (21:56)
[2018-10-29] VITALS (12 sets, daily range): BP systolic 91–132; BP diastolic 50–92
[2018-10-29] MEDS: IPRATROPIUM/ALBUTEROL 0.5-3(2.5)MG/3ML NEB HHN SCH ×3 (02:52→20:40)
[2018-10-29] MEDS: TAMSULOSIN HCL 0.4MG SR CAPSULE PO SCH (08:46)
[2018-10-29] MEDS: FAMOTIDINE 20MG TABLET PO SCH ×2 (08:47→20:47)
[2018-10-29] MEDS: NICOTINE 14MG PATCH TD SCH (08:47)
[2018-10-29] MEDS: POTASSIUM-SODIUM PHOSPHATE POWDER PACKET PO SCH (08:47)
[2018-10-29] MEDS: LEVOFLOXACIN 500MG PREMIX 100 ML IV SCH (10:22)
[2018-10-29] MEDS: ONDANSETRON HCL 4MG/2ML INJ IV PRN (10:29)
[2018-10-29] MEDS: SODIUM CHLORIDE 0.9% 1,000 ML IV SCH (10:44)
[2018-10-29] MEDS: MORPHINE SULFATE 4 MG/ML CPJ (NOT FOR IM USE) IV PRN (14:30)
[2018-10-29] MEDS ORDERED: BISACODYL 10MG SUPP PR PRN (15:15)
[2018-10-29] MEDS: DEXT 5%/0.45% NACL 1000ML 1,000 ML IV SCH (17:54)
[2018-10-30] VITALS (13 sets, daily range): BP systolic 75–117; BP diastolic 51–98
[2018-10-30] MEDS: MORPHINE SULFATE 4 MG/ML CPJ (NOT FOR IM USE) IV PRN ×3 (00:03→05:10)
[2018-10-30] MEDS: IPRATROPIUM/ALBUTEROL 0.5-3(2.5)MG/3ML NEB HHN SCH ×4 (01:29→21:19)
[2018-10-30] MEDS: DEXT 5%/0.45% NACL 1000ML 1,000 ML IV SCH ×2 (05:16→16:21)
[2018-10-30] MEDS ORDERED: MORPHINE SULFATE 4 MG/ML CPJ (NOT FOR IM USE) IV NR (06:58)
[2018-10-30 08:01] LABS: BASOPHILS % 0.4 % (0.0-2.0); EOSINOPHILS % 0.7 % (0.0-5.0); HEMATOCRIT. 26.9 % (42.0-52.0); HEMOGLOBIN. 8.9 g/dL (14.0-18.0); LYMPHOCYTES % 10.6 % (20.0-50.0); MEAN CORPUSCULAR HEMOGLOBIN 30.7 pg (28.0-32.0); MEAN CORPUSCULAR VOLUME 92.8 fL (80.0-94.0); MEAN PLATELET VOLUME 8.6 fl (7.4-10.4); MONOCYTES % 6.9 % (2.0-8.0); NEUTROPHILS % 81.4 % (40.0-76.0); PLATELET 81 x1000/uL (130-400)
[2018-10-30 08:55] LABS: CHLORIDE 108 mEq/L (98-107)
[2018-10-30] MEDS: FAMOTIDINE 20MG TABLET PO SCH ×2 (09:00→20:10)
[2018-10-30] MEDS: TAMSULOSIN HCL 0.4MG SR CAPSULE PO SCH (10:02)
[2018-10-30] MEDS: LEVOFLOXACIN 500MG PREMIX 100 ML IV SCH (10:03)
[2018-10-30] MEDS ORDERED: LACTULOSE 20G/30ML UDC PO PRN (14:00)
[2018-10-30] MEDS ORDERED: SORBITOL 70% SOLN 30ML PO ONE (18:00)
[2018-10-30] MEDS ORDERED: SORBITOL 70% SOLN 30ML PO NR (18:00)
[2018-10-30] MEDS ORDERED: PHENYLEPHRINE/SHK LV/MO/PET,WH RECTAL OINT 28GM PR SCH (18:00)
[2018-10-30] MEDS: PHENYLEPHRINE/SHK LV/MO/PET,WH RECTAL OINT 28GM PR SCH (20:10)
[2018-10-30] MEDS: HYDROCODONE/ACETAMINOPHEN 5/325MG TABLET PO PRN (22:55)
[2018-10-31] VITALS (12 sets, daily range): BP systolic 98–127; BP diastolic 70–100
[2018-10-31] MEDS: IPRATROPIUM/ALBUTEROL 0.5-3(2.5)MG/3ML NEB HHN SCH ×2 (02:40→20:16)
[2018-10-31] MEDS: DEXT 5%/0.45% NACL 1000ML 1,000 ML IV SCH ×2 (05:04→20:07)
[2018-10-31] MEDS: PHENYLEPHRINE/SHK LV/MO/PET,WH RECTAL OINT 28GM PR SCH ×4 (05:05→17:53)
[2018-10-31 07:18] LABS: BASOPHILS % 0.3 % (0.0-2.0); EOSINOPHILS % 0.7 % (0.0-5.0); HEMATOCRIT. 26.1 % (42.0-52.0); HEMOGLOBIN. 8.7 g/dL (14.0-18.0); LYMPHOCYTES % 11.1 % (20.0-50.0); MEAN CORPUSCULAR HEMOGLOBIN 30.9 pg (28.0-32.0); MEAN CORPUSCULAR VOLUME 92.5 fL (80.0-94.0); MEAN PLATELET VOLUME 8.1 fl (7.4-10.4); MONOCYTES % 9.1 % (2.0-8.0); NEUTROPHILS % 78.8 % (40.0-76.0); PLATELET 64 x1000/uL (130-400); RED BLOOD CELL COUNT 2.82 mill/uL (4.7-6.1); RED CELL DISTRIBUTION WIDTH 16.3 % (11.6-14.6)
[2018-10-31] MEDS: TAMSULOSIN HCL 0.4MG SR CAPSULE PO SCH (08:52)
[2018-10-31] MEDS: FAMOTIDINE 20MG TABLET PO SCH ×2 (08:52→20:07)
[2018-10-31] MEDS: LEVOFLOXACIN 500MG PREMIX 100 ML IV SCH (11:00)
[2018-10-31] MEDS: FLUDROCORTISONE ACETATE 0.1MG TABLET PO SCH (15:04)
[2018-10-31] MEDS: HYDROCODONE/ACETAMINOPHEN 5/325MG TABLET PO PRN (21:11)
[2018-11-01] VITALS (21 sets, daily range): BP systolic 85–118; BP diastolic 37–81
[2018-11-01] MEDS: PHENYLEPHRINE/SHK LV/MO/PET,WH RECTAL OINT 28GM PR SCH ×5 (00:13→22:55)
[2018-11-01] MEDS: IPRATROPIUM/ALBUTEROL 0.5-3(2.5)MG/3ML NEB HHN SCH ×3 (02:15→20:48)
[2018-11-01] MEDS: BENZONATATE 100MG CAPSULE PO PRN ×2 (03:05→22:55)
[2018-11-01 07:40] LABS: CHLORIDE 107 mEq/L (98-107)
[2018-11-01 07:42] LABS: BASOPHILS % 0.5 % (0.0-2.0); EOSINOPHILS % 0.9 % (0.0-5.0); HEMATOCRIT. 27.1 % (42.0-52.0); HEMOGLOBIN. 8.8 g/dL (14.0-18.0); LYMPHOCYTES % 11.7 % (20.0-50.0); MEAN CORPUSCULAR HEMOGLOBIN 30.6 pg (28.0-32.0); MEAN CORPUSCULAR VOLUME 93.6 fL (80.0-94.0); MONOCYTES % 10.3 % (2.0-8.0); NEUTROPHILS % 76.6 % (40.0-76.0); PLATELET 59 x1000/uL (130-400); RED BLOOD CELL COUNT 2.89 mill/uL (4.7-6.1); RED CELL DISTRIBUTION WIDTH 15.6 % (11.6-14.6)
[2018-11-01] MEDS: FAMOTIDINE 20MG TABLET PO SCH ×2 (09:22→20:16)
[2018-11-01] MEDS: FLUDROCORTISONE ACETATE 0.1MG TABLET PO SCH (09:22)
[2018-11-01] MEDS: TAMSULOSIN HCL 0.4MG SR CAPSULE PO SCH (09:27)
[2018-11-01] MEDS: DEXT 5%/0.45% NACL 1000ML 1,000 ML IV SCH ×2 (09:28→22:56)
[2018-11-02] VITALS (12 sets, daily range): BP systolic 100–121; BP diastolic 51–83
[2018-11-02] MEDS: IPRATROPIUM/ALBUTEROL 0.5-3(2.5)MG/3ML NEB HHN SCH ×3 (00:53→13:44)
[2018-11-02] MEDS: GUAIFENESIN-DM 200MG-20MG/10ML UDC PO PRN (01:30)
[2018-11-02] MEDS: PHENYLEPHRINE/SHK LV/MO/PET,WH RECTAL OINT 28GM PR SCH ×2 (05:13→11:51)
[2018-11-02] MEDS: TAMSULOSIN HCL 0.4MG SR CAPSULE PO SCH (09:13)
[2018-11-02] MEDS: FLUDROCORTISONE ACETATE 0.1MG TABLET PO SCH (09:14)
[2018-11-02] MEDS: FAMOTIDINE 20MG TABLET PO SCH (09:14)
== END 2018-11-02 21:30 | DRG 121 ==
LOC: ER 17:09 → 5WST 10-12 01:55 → EDBEDREQTM 10-12 01:57 → EDBEDREQ 10-12 01:57 → ENRESERV 10-12 10:09 → 5WST 10-12 22:37 → CVICU 10-23 20:20 → 3WST 10-29 01:06
PROVIDERS: ADMIT Internal Medicine; ATTEND Internal Medicine
PROC: 0W9B30Z Drainage of Left Pleural Cavity with Drainage Device, Percutaneous Approach (ICD-10-PCS; principal; 2018-10-23)
PROC: 0BNL4ZZ Release Left Lung, Percutaneous Endoscopic Approach (ICD-10-PCS; 2018-10-23)
PROC: 0BJ08ZZ Inspection of Tracheobronchial Tree, Via Natural or Artificial Opening Endoscopic (ICD-10-PCS; 2018-10-23)
PROC: 3E0L3GC Introduction of Other Therapeutic Substance into Pleural Cavity, Percutaneous Approach (ICD-10-PCS; 2018-10-23)
DX: J93.9 Pneumothorax, unspecified (principal); J96.00 Acute respiratory failure, unspecified whether with hypoxia or hypercapnia; I47.2 Ventricular tachycardia; E43 Unspecified severe protein-calorie malnutrition; D61.818 Other pancytopenia; J18.9 Pneumonia, unspecified organism; K56.609 Unspecified intestinal obstruction, unspecified as to partial versus complete obstruction; J90 Pleural effusion, not elsewhere classified; N17.9 Acute kidney failure, unspecified; I47.1 Supraventricular tachycardia; E11.22 Type 2 diabetes mellitus with diabetic chronic kidney disease; E11.36 Type 2 diabetes mellitus with diabetic cataract; J94.8 Other specified pleural conditions; M62.82 Rhabdomyolysis; K74.60 Unspecified cirrhosis of liver; B19.20 Unspecified viral hepatitis C without hepatic coma; I71.9 Aortic aneurysm of unspecified site, without rupture; I44.0 Atrioventricular block, first degree; M41.9 Scoliosis, unspecified; N14.1 Nephropathy induced by other drugs, medicaments and biological substances; N18.2 Chronic kidney disease, stage 2 (mild); F17.210 Nicotine dependence, cigarettes, uncomplicated; H91.90 Unspecified hearing loss, unspecified ear; I12.9 Hypertensive chronic kidney disease with stage 1 through stage 4 chronic kidney disease, or unspecified chronic kidney disease; I25.10 Atherosclerotic heart disease of native coronary artery without angina pectoris; J43.0 Unilateral pulmonary emphysema [MacLeod's syndrome]; Q87.40 Marfan syndrome, unspecified; T50.8X5A Adverse effect of diagnostic agents, initial encounter; Z86.73 Personal history of transient ischemic attack (TIA), and cerebral infarction without residual deficits; Z87.01 Personal history of pneumonia (recurrent); Z86.79 Personal history of other diseases of the circulatory system; J43.9 Emphysema, unspecified; Z68.22 Body mass index [BMI] 22.0-22.9, adult
CPT/HCPCS: 32551; 36415; 36600; 71045; 71250; 71275; 74018; 74174; 80048; 80061; 80305; 82375; 82550; 82553; 82805; 82962; 83605; 83615; 83735; 83880; 84100; 84132; 84134; 84145; 84443; 84484; 85007; 85027; 86850; 86900; 86920; 87075; 87102; 87116; 87804; 88108; 88305; 88312; 93005; 93306; 93970; 94640; 97116; 97162; 97164; 97167; 97168; 97530; 97535; 99152; 99153; 99291; A6261; C1893; J1100; J1170; J1200; J1956; J2060; J2270; J2310; J2370; J2405; J2543; J2704; J2710; J3010; J3475; J3490; J7030; J7040; J7060; J7512; J7620; J7626; Q0163; Q9967

== ENCOUNTER 2018-12-04 10:20 | Inpatient (IN) | payer MEDICAID ==
[~2018-12-04] VITALS: Ht 170.2 cm; Wt 59.9 kg
[2018-12-04] MEDS ORDERED: SODIUM CHLORIDE 0.9% 1,000 ML IV ONE (10:41)
[2018-12-04] MEDS ORDERED: MORPHINE SULFATE 4 MG/ML CPJ (NOT FOR IM USE) IV STA (10:41)
[2018-12-04 12:05] LABS: BASOPHILS % 0.4 % (0.0-2.0); EOSINOPHILS % 1.3 % (0.0-5.0); HEMATOCRIT. 32.8 % (42.0-52.0); HEMOGLOBIN. 10.3 g/dL (14.0-18.0); LYMPHOCYTES % 14.2 % (20.0-50.0); MEAN CORPUSCULAR HEMOGLOBIN 29.3 pg (28.0-32.0); MEAN CORPUSCULAR VOLUME 92.7 fL (80.0-94.0); MEAN PLATELET VOLUME 8.8 fl (7.4-10.4); MONOCYTES % 10.9 % (2.0-8.0); NEUTROPHILS % 73.2 % (40.0-76.0); PLATELET 108 x1000/uL (130-400); RED BLOOD CELL COUNT 3.53 mill/uL (4.7-6.1); RED CELL DISTRIBUTION WIDTH 15.2 % (11.6-14.6)
[2018-12-04 12:11] LABS: CHLORIDE 106 mEq/L (98-107)
[2018-12-04 12:12] LABS: INR 1.1; PROTHROMBIN TIME 11.1 sec (9.1-11.1)
[2018-12-04] MEDS ORDERED: CEFTRIAXONE 1 G PREMIX 50 ML IV ONE (12:15)
[2018-12-04] MEDS ORDERED: ONDANSETRON HCL 4MG/2ML INJ IV PRN (12:45)
[2018-12-04] MEDS ORDERED: DOCUSATE SODIUM 100MG CAPSULE PO PRN (12:45)
[2018-12-04] MEDS ORDERED: ACETAMINOPHEN 325MG TABLET PO PRN (12:45)
[2018-12-04] MEDS ORDERED: DIPHENHYDRAMINE 50MG/ML VIAL IV PRN (12:45)
[2018-12-04] MEDS ORDERED: GUAIFENESIN 200MG/10ML SUGAR FREE UDC PO PRN (12:45)
[2018-12-04] MEDS ORDERED: IPRATROPIUM/ALBUTEROL 0.5-3(2.5)MG/3ML NEB INH PRN (12:45)
[2018-12-04 13:04] LABS: PHOSPHORUS 2.7 mg/dL (2.5-4.9)
[2018-12-04] MEDS: AZITHROMYCIN 500 MG in DEXT 5% WATER 250 ML IV SCH ×2 (13:12→14:41)
[2018-12-04 13:46] LABS: CREATINE KINASE MB FRACTION 2.3 ng/mL (0.5-3.6)
[2018-12-04] MEDS ORDERED: IOHEXOL-350 100 ML BOTTLE ONE (15:07)
[2018-12-04] MEDS ORDERED: IPRATROPIUM/ALBUTEROL 0.5-3(2.5)MG/3ML NEB HHN PRN (15:45)
[2018-12-04 17:21] LABS: CLARITY URINE CLEAR (CLEAR); COLOR URINE YELLOW (YELLOW); KETONES URINE NEGATIVE (NEGATIVE); LEUKOCYTE ESTERASE URINE NEGATIVE (NEGATIVE); NITRITE URINE NEGATIVE (NEGATIVE); OCCULT BLOOD URINE NEGATIVE (NEGATIVE); PROTEIN URINE NEGATIVE (NEGATIVE)
[2018-12-04 17:32] LABS: *AMPHETAMINES SCREEN URINE NEGATIVE (NEGATIVE); *BARBITURATES SCREEN URINE NEGATIVE (NEGATIVE); *BENZODIAZEPINES SCREEN URINE NEGATIVE (NEGATIVE); *COCAINE SCREEN URINE NEGATIVE (NEGATIVE)
[2018-12-04 17:33] LABS: CANNABINOID URINE SCREEN NEGATIVE (NEGATIVE); METHADONE URINE SCREEN NEGATIVE (NEGATIVE); OPIATES URINE SCREEN PRESUMTIVE POSITIVE (NEGATIVE); PHENCYCLIDINE URINE SCREEN NEGATIVE (NEGATIVE)
[2018-12-04] MEDS: HYDROCODONE/ACETAMINOPHEN 5/325MG TABLET PO PRN (18:13)
[2018-12-04 23:49] LABS: CREATINE KINASE MB FRACTION 2.1 ng/mL (0.5-3.6)
[2018-12-05 01:30] VITALS: BP_SYST 110; BP_SYST 133; BP_DIAS 70; BP_DIAS 74
[2018-12-05] MEDS ORDERED: DEXTROSE 50% WATER 50ML SYRINGE IV PRN (02:30)
[2018-12-05] MEDS: ENOXAPARIN 60MG/0.6ML SYR SUBCUT SCH ×3 (03:00→15:00)
[2018-12-05 04:00] VITALS: BP 107/72
[2018-12-05] MEDS: HYDROCODONE/ACETAMINOPHEN 5/325MG TABLET PO PRN (05:05)
[2018-12-05 06:21] LABS: CHLORIDE 108 mEq/L (98-107)
[2018-12-05 06:36] LABS: BASOPHILS % 0.5 % (0.0-2.0); EOSINOPHILS % 3.1 % (0.0-5.0); HEMATOCRIT. 30.8 % (42.0-52.0); LDL CHOLESTEROL 54 mg/dL (5-100); LYMPHOCYTES % 15.2 % (20.0-50.0); MEAN CORPUSCULAR HEMOGLOBIN 30.3 pg (28.0-32.0); MEAN CORPUSCULAR VOLUME 93.6 fL (80.0-94.0); MEAN PLATELET VOLUME 8.3 fl (7.4-10.4); MONOCYTES % 11.8 % (2.0-8.0); NEUTROPHILS % 69.4 % (40.0-76.0); PLATELET 90 x1000/uL (130-400); RED BLOOD CELL COUNT 3.29 mill/uL (4.7-6.1)
[2018-12-05 06:38] LABS: HDL CHOLESTEROL 38 mg/dL (40-59)
[2018-12-05] MEDS: BLOOD SUGAR DIAGNOSTIC STRIP TEST SCH ×4 (07:40→21:00)
[2018-12-05] MEDS: MORPHINE SULFATE 4 MG/ML CPJ (NOT FOR IM USE) IV PRN ×2 (07:45→20:42)
[2018-12-05] MEDS: INSULIN LISPRO 100 UNITS/ML SUBCUT SCH ×4 (08:10→21:00)
[2018-12-05] MEDS: BUDESONIDE 0.5MG/2ML NEB HHN SCH ×2 (08:50→21:50)
[2018-12-05] MEDS: IPRATROPIUM/ALBUTEROL 0.5-3(2.5)MG/3ML NEB HHN SCH ×3 (08:50→21:50)
[2018-12-05 12:00] VITALS: BP 109/71
[2018-12-05 16:00] VITALS: BP 123/71
[2018-12-05] MEDS: ATORVASTATIN CALCIUM 40MG TABLET PO SCH (16:47)
[2018-12-05] MEDS: CARVEDILOL 3.125 MG TABLET PO SCH ×2 (16:48→20:43)
[2018-12-05] MEDS: NICOTINE 14MG PATCH TD SCH (16:48)
[2018-12-05 20:00] VITALS: BP 122/84
[2018-12-06] VITALS: BP 120/80
[2018-12-06] MEDS: MORPHINE SULFATE 4 MG/ML CPJ (NOT FOR IM USE) IV PRN ×2 (01:33→08:45)
[2018-12-06] MEDS: ENOXAPARIN 60MG/0.6ML SYR SUBCUT SCH (02:13)
[2018-12-06 04:00] VITALS: BP 115/80
[2018-12-06] MEDS: IPRATROPIUM/ALBUTEROL 0.5-3(2.5)MG/3ML NEB HHN SCH ×3 (04:19→13:10)
[2018-12-06] MEDS: BLOOD SUGAR DIAGNOSTIC STRIP TEST SCH (05:29)
[2018-12-06 07:30] LABS: BASOPHILS % 0.3 % (0.0-2.0); EOSINOPHILS % 2.8 % (0.0-5.0); HEMATOCRIT. 28.7 % (42.0-52.0); HEMOGLOBIN. 9.3 g/dL (14.0-18.0); LYMPHOCYTES % 18.4 % (20.0-50.0); MEAN CORPUSCULAR HEMOGLOBIN 29.8 pg (28.0-32.0); MEAN CORPUSCULAR VOLUME 91.5 fL (80.0-94.0); MEAN PLATELET VOLUME 8.5 fl (7.4-10.4); MONOCYTES % 12.6 % (2.0-8.0); NEUTROPHILS % 65.9 % (40.0-76.0); PLATELET 96 x1000/uL (130-400); RED BLOOD CELL COUNT 3.13 mill/uL (4.7-6.1); RED CELL DISTRIBUTION WIDTH 15.1 % (11.6-14.6)
[2018-12-06 07:37] LABS: CHLORIDE 105 mEq/L (98-107)
[2018-12-06 08:00] VITALS: BP 122/79
[2018-12-06] MEDS: BUDESONIDE 0.5MG/2ML NEB HHN SCH (08:00)
[2018-12-06] MEDS: INSULIN LISPRO 100 UNITS/ML SUBCUT SCH (08:10)
[2018-12-06] MEDS: NICOTINE 14MG PATCH TD SCH (08:43)
[2018-12-06] MEDS: CETIRIZINE 10MG TABLET PO SCH ×2 (08:43→09:00)
[2018-12-06] MEDS: ATORVASTATIN CALCIUM 40MG TABLET PO SCH (08:44)
[2018-12-06] MEDS: CARVEDILOL 3.125 MG TABLET PO SCH (08:44)
[2018-12-06 12:00] VITALS: BP 106/75
[2018-12-06 15:38] VITALS: BP 106/75
== END 2018-12-06 16:08 | disposition home or self-care (01) | DRG 133 ==
LOC: ER 10:38 → 7WST 12:20 → EDBEDREQ 12:23 → EDBEDREQTM 12:23 → ENRESERV 21:13
PROVIDERS: ADMIT Internal Medicine; ATTEND Internal Medicine
DX: J96.00 Acute respiratory failure, unspecified whether with hypoxia or hypercapnia (principal); E43 Unspecified severe protein-calorie malnutrition; D70.9 Neutropenia, unspecified; I11.0 Hypertensive heart disease with heart failure; I50.9 Heart failure, unspecified; D64.9 Anemia, unspecified; E11.9 Type 2 diabetes mellitus without complications; Q87.40 Marfan syndrome, unspecified; J43.9 Emphysema, unspecified; I51.3 Intracardiac thrombosis, not elsewhere classified; B19.20 Unspecified viral hepatitis C without hepatic coma; J00 Acute nasopharyngitis [common cold]; F17.210 Nicotine dependence, cigarettes, uncomplicated; G89.29 Other chronic pain; I25.10 Atherosclerotic heart disease of native coronary artery without angina pectoris; I71.9 Aortic aneurysm of unspecified site, without rupture; K21.9 Gastro-esophageal reflux disease without esophagitis; K74.60 Unspecified cirrhosis of liver; Z95.1 Presence of aortocoronary bypass graft; Z95.2 Presence of prosthetic heart valve; N40.0 Benign prostatic hyperplasia without lower urinary tract symptoms; Z79.4 Long term (current) use of insulin; J44.1 Chronic obstructive pulmonary disease with (acute) exacerbation
CPT/HCPCS: 36415; 71045; 71275; 74174; 76604; 80048; 80061; 80305; 82550; 82553; 82962; 83036; 83605; 83735; 83880; 84100; 84443; 84484; 93005; 93970; 96365; 96366; 96368; 96375; 97162; 97166; 97530; 97535; 99285; J0456; J0696; J1650; J2270; J7030; J7060; J7620; J7626; Q9967

== ENCOUNTER 2018-12-22 21:13 | Emergency (ER) | payer MEDICAID ==
[~2018-12-22] VITALS: Ht 175.3 cm; Wt 73.0 kg
[2018-12-22 23:35] LABS: CHLORIDE 112 mEq/L (98-107)
[2018-12-22 23:46] LABS: BASOPHILS % 0.3 % (0.0-2.0); EOSINOPHILS % 1.1 % (0.0-5.0); HEMATOCRIT. 33.6 % (42.0-52.0); HEMOGLOBIN. 10.9 g/dL (14.0-18.0); LYMPHOCYTES % 16.2 % (20.0-50.0); MEAN CORPUSCULAR HEMOGLOBIN 30.1 pg (28.0-32.0); MEAN CORPUSCULAR VOLUME 92.9 fL (80.0-94.0); MEAN PLATELET VOLUME 8.6 fl (7.4-10.4); MONOCYTES % 6.8 % (2.0-8.0); NEUTROPHILS % 75.6 % (40.0-76.0); PLATELET 83 x1000/uL (130-400); RED BLOOD CELL COUNT 3.62 mill/uL (4.7-6.1); RED CELL DISTRIBUTION WIDTH 15.3 % (11.6-14.6)
[2018-12-23] MEDS ORDERED: KETOROLAC 15MG/ML VIAL IV ONE (00:30)
[2018-12-23] MEDS ORDERED: ONDANSETRON HCL 4MG/2ML INJ IV ONE (00:30)
[2018-12-23 06:31] VITALS: BP 121/72
== END 2018-12-23 06:32 | disposition home or self-care (01) ==
LOC: ER 21:13
DX: R07.89 Other chest pain (principal); F17.200 Nicotine dependence, unspecified, uncomplicated; I10 Essential (primary) hypertension; Z98.890 Other specified postprocedural states; Z79.899 Other long term (current) drug therapy
CPT/HCPCS: 36415; 71045; 80053; 83880; 84484; 85025; 93005; 96374; 96375; 99284; J1885; J2405

== ENCOUNTER 2019-01-08 18:05 | Inpatient (IN) | payer MEDICAID ==
[~2019-01-08] VITALS: Ht 185.4 cm; Wt 86.6 kg
[2019-01-08 22:51] LABS: BASOPHILS % 0.5 % (0.0-2.0); EOSINOPHILS % 1.3 % (0.0-5.0); HEMATOCRIT. 35.4 % (42.0-52.0); HEMOGLOBIN. 11.5 g/dL (14.0-18.0); LYMPHOCYTES % 22.1 % (20.0-50.0); MEAN CORPUSCULAR VOLUME 92.2 fL (80.0-94.0); MEAN PLATELET VOLUME 8.1 fl (7.4-10.4); MONOCYTES % 8.7 % (2.0-8.0); NEUTROPHILS % 67.4 % (40.0-76.0); PLATELET 80 x1000/uL (130-400); RED BLOOD CELL COUNT 3.84 mill/uL (4.7-6.1); RED CELL DISTRIBUTION WIDTH 16.5 % (11.6-14.6)
[2019-01-08 22:56] LABS: CLARITY URINE CLEAR (CLEAR); COLOR URINE DARK YELLOW (YELLOW); KETONES URINE NEGATIVE (NEGATIVE); LEUKOCYTE ESTERASE URINE NEGATIVE (NEGATIVE); NITRITE URINE NEGATIVE (NEGATIVE); OCCULT BLOOD URINE NEGATIVE (NEGATIVE); PH URINE 6.5 (4.5-8.0); PROTEIN URINE TRACE (NEGATIVE)
[2019-01-08 22:58] LABS: CHLORIDE 109 mEq/L (98-107)
[2019-01-08 22:59] LABS: INR 1.1; PARTIAL THROMBOPLASTIN TIME 33.6 sec (23.4-31.0)
[2019-01-08] MEDS ORDERED: ONDANSETRON HCL 4MG/2ML INJ IV STA (23:16)
[2019-01-08] MEDS ORDERED: SODIUM CHLORIDE 0.9% 1,000 ML IV ONE (23:16)
[2019-01-08] MEDS ORDERED: MORPHINE SULFATE 4 MG/ML CPJ (NOT FOR IM USE) IV STA (23:16)
[2019-01-09] MEDS ORDERED: ASPIRIN 81MG TABLET PO ONE (01:15)
[2019-01-09] MEDS ORDERED: IOHEXOL-350 100 ML BOTTLE ONE (02:13)
[2019-01-09] MEDS ORDERED: MAGNESIUM/ALUMINUM HYDROXIDE/SIMETHICONE 30ML UDC PO PRN (02:30)
[2019-01-09] MEDS ORDERED: CLONIDINE 0.1MG TABLET PO PRN (02:30)
[2019-01-09] MEDS ORDERED: ONDANSETRON HCL 4MG/2ML INJ IV PRN (02:30)
[2019-01-09] MEDS ORDERED: ACETAMINOPHEN 325MG TABLET PO PRN (02:30)
[2019-01-09] MEDS ORDERED: ENOXAPARIN 40MG/0.4ML SYR SUBCUT SCH (02:30)
[2019-01-09] MEDS ORDERED: IPRATROPIUM/ALBUTEROL 0.5-3(2.5)MG/3ML NEB INH PRN (02:30)
[2019-01-09] MEDS ORDERED: GUAIFENESIN 200MG/10ML SUGAR FREE UDC PO PRN (02:30)
[2019-01-09] MEDS ORDERED: DOCUSATE SODIUM 100MG CAPSULE PO PRN (02:30)
[2019-01-09] MEDS ORDERED: MORPHINE SULFATE 4 MG/ML CPJ (NOT FOR IM USE) IV ONE (02:30)
[2019-01-09] MEDS ORDERED: SODIUM CHLORIDE 0.9% 1000ML BAG (SEPSIS BOLUS) IV ONE (03:00)
[2019-01-09] MEDS ORDERED: PIPERACILLIN/TAZ 3.375G PREMIX 50 ML IV ONE (03:00)
[2019-01-09] MEDS ORDERED: VANCOMYCIN 1 G PREMIX 200 ML IV ONE (03:00)
[2019-01-09 06:53] LABS: CREATINE KINASE 117 IU/L (39-308)
[2019-01-09] MEDS: HYDROCODONE/ACETAMINOPHEN 5/325MG TABLET PO PRN (07:45)
[2019-01-09 08:43] LABS: *AMPHETAMINES SCREEN URINE NEGATIVE (NEGATIVE); *BARBITURATES SCREEN URINE NEGATIVE (NEGATIVE); *BENZODIAZEPINES SCREEN URINE NEGATIVE (NEGATIVE); *COCAINE SCREEN URINE NEGATIVE (NEGATIVE); METHADONE URINE SCREEN NEGATIVE (NEGATIVE); OPIATES URINE SCREEN NEGATIVE (NEGATIVE)
[2019-01-09 08:44] LABS: CANNABINOID URINE SCREEN NEGATIVE (NEGATIVE); PHENCYCLIDINE URINE SCREEN NEGATIVE (NEGATIVE)
[2019-01-09] MEDS ORDERED: ENOXAPARIN 40MG/0.4ML SYR SUBCUT ONE (09:00)
[2019-01-09 09:29] LABS: BASOPHILS % 0.3 % (0.0-2.0); EOSINOPHILS % 2.1 % (0.0-5.0); HEMATOCRIT. 29.3 % (42.0-52.0); HEMOGLOBIN. 9.8 g/dL (14.0-18.0); MEAN CORPUSCULAR HEMOGLOBIN 30.3 pg (28.0-32.0); MEAN PLATELET VOLUME 7.8 fl (7.4-10.4); MONOCYTES % 10.2 % (2.0-8.0); NEUTROPHILS % 71.4 % (40.0-76.0); PLATELET 77 x1000/uL (130-400); RED BLOOD CELL COUNT 3.22 mill/uL (4.7-6.1); RED CELL DISTRIBUTION WIDTH 16.2 % (11.6-14.6)
[2019-01-09 09:33] LABS: CHLORIDE 110 mEq/L (98-107)
[2019-01-09 12:00] VITALS: BP 112/83
[2019-01-09 12:11] VITALS: BP 112/83
[2019-01-09 15:32] LABS: CREATINE KINASE 109 IU/L (39-308)
[2019-01-09 16:44] VITALS: BP 116/81
[2019-01-09] MEDS: ASPIRIN 81MG EC TABLET PO SCH (16:58)
[2019-01-09 19:30] LABS: TOTAL IRON BINDING CAPACITY 415 ug/dL (250-450)
[2019-01-09 20:00] VITALS: BP 131/83
[2019-01-10] VITALS: BP 118/81
[2019-01-10 04:00] VITALS: BP 127/84
[2019-01-10 07:33] LABS: CHLORIDE 109 mEq/L (98-107)
[2019-01-10 07:43] LABS: LDL CHOLESTEROL 47 mg/dL (5-100)
[2019-01-10 07:45] LABS: HDL CHOLESTEROL 42 mg/dL (40-59)
[2019-01-10 07:48] LABS: HEMOGLOBIN. 9.5 g/dL (14.0-18.0); MEAN CORPUSCULAR HEMOGLOBIN 29.9 pg (28.0-32.0); MEAN CORPUSCULAR VOLUME 91.2 fL (80.0-94.0); MEAN PLATELET VOLUME 9.1 fl (7.4-10.4); PLATELET 76 x1000/uL (130-400); RED BLOOD CELL COUNT 3.17 mill/uL (4.7-6.1); RED CELL DISTRIBUTION WIDTH 16.6 % (11.6-14.6)
[2019-01-10 08:00] VITALS: BP 101/71
[2019-01-10] MEDS: ASPIRIN 81MG EC TABLET PO SCH (08:39)
[2019-01-10] MEDS: HYDROCODONE/ACETAMINOPHEN 5/325MG TABLET PO PRN ×2 (08:46→22:54)
[2019-01-10 09:25] LABS: PLATELET ESTIMATE DECREASED
[2019-01-10] MEDS: DIPHENHYDRAMINE 50MG/ML VIAL IV PRN (11:26)
[2019-01-10 12:00] VITALS: BP 96/54
[2019-01-10] MEDS: DOCUSATE SODIUM 100MG CAPSULE PO SCH ×2 (15:00→17:00)
[2019-01-10 16:25] VITALS: BP 116/83
[2019-01-10] MEDS: FERROUS SULFATE 325MG TABLET PO SCH (17:51)
[2019-01-10 20:00] VITALS: BP 100/64
[2019-01-11] VITALS: BP 114/71
[2019-01-11] MEDS: DIPHENHYDRAMINE 50MG/ML VIAL IV PRN (00:20)
[2019-01-11 04:00] VITALS: BP 112/69
[2019-01-11] MEDS: FERROUS SULFATE 325MG TABLET PO SCH ×2 (06:44→18:02)
[2019-01-11 07:07] LABS: CHLORIDE 106 mEq/L (98-107)
[2019-01-11 07:11] LABS: BASOPHILS % 0.8 % (0.0-2.0); EOSINOPHILS % 1.6 % (0.0-5.0); HEMATOCRIT. 31.5 % (42.0-52.0); HEMOGLOBIN. 10.2 g/dL (14.0-18.0); LYMPHOCYTES % 20.3 % (20.0-50.0); MEAN CORPUSCULAR HEMOGLOBIN 29.7 pg (28.0-32.0); MEAN CORPUSCULAR VOLUME 91.3 fL (80.0-94.0); MEAN PLATELET VOLUME 8.3 fl (7.4-10.4); MONOCYTES % 10.2 % (2.0-8.0); NEUTROPHILS % 67.1 % (40.0-76.0); PLATELET 79 x1000/uL (130-400); RED BLOOD CELL COUNT 3.44 mill/uL (4.7-6.1); RED CELL DISTRIBUTION WIDTH 16.2 % (11.6-14.6)
[2019-01-11 07:20] LABS: FOLIC ACID (FOLATE) SERUM 16.7 ng/mL (>5.38)
[2019-01-11 08:00] VITALS: BP 122/90
[2019-01-11] MEDS: DOCUSATE SODIUM 100MG CAPSULE PO SCH ×2 (09:00→17:00)
[2019-01-11] MEDS: ASPIRIN 81MG EC TABLET PO SCH (09:00)
[2019-01-11 12:00] VITALS: BP 120/79
[2019-01-11] MEDS ORDERED: DOCU-138 PO (15:16)
[2019-01-11] MEDS ORDERED: FERR325T23 PO (15:16)
[2019-01-11] MEDS ORDERED: ASPI-1158 PO (15:16)
[2019-01-11 16:00] VITALS: BP 91/65
[2019-01-11 20:00] VITALS: BP 104/71
[2019-01-12] VITALS: BP 117/72
[2019-01-12] MEDS: HYDROCODONE/ACETAMINOPHEN 5/325MG TABLET PO PRN (01:23)
[2019-01-12 04:00] VITALS: BP 109/66
[2019-01-12 08:00] VITALS: BP 123/65
[2019-01-12 08:11] LABS: HIV SCREEN 4G Non Reactive (Non Reactive)
[2019-01-12] MEDS: DOCUSATE SODIUM 100MG CAPSULE PO SCH ×2 (08:24→08:28)
[2019-01-12] MEDS: ASPIRIN 81MG EC TABLET PO SCH ×2 (08:24→08:25)
[2019-01-12] MEDS: FERROUS SULFATE 325MG TABLET PO SCH (08:24)
[2019-01-12 10:22] VITALS: BP 123/65
== END 2019-01-12 10:54 | disposition home or self-care (01) | DRG 194 ==
LOC: ER 18:05 → 8WST 01-09 02:12 → ENRESERV 01-09 10:04
PROVIDERS: ADMIT Internal Medicine; ATTEND Internal Medicine
DX: J90 Pleural effusion, not elsewhere classified (principal); I50.9 Heart failure, unspecified; I11.0 Hypertensive heart disease with heart failure; D61.818 Other pancytopenia; E46 Unspecified protein-calorie malnutrition; R07.89 Other chest pain; I07.1 Rheumatic tricuspid insufficiency; J44.9 Chronic obstructive pulmonary disease, unspecified; E61.1 Iron deficiency; E78.00 Pure hypercholesterolemia, unspecified; I27.20 Pulmonary hypertension, unspecified; K74.60 Unspecified cirrhosis of liver; E11.9 Type 2 diabetes mellitus without complications; B19.20 Unspecified viral hepatitis C without hepatic coma; M54.5 Low back pain; R94.31 Abnormal electrocardiogram [ECG] [EKG]; Q87.40 Marfan syndrome, unspecified; Z79.82 Long term (current) use of aspirin; Z87.891 Personal history of nicotine dependence; Z95.1 Presence of aortocoronary bypass graft; Z95.2 Presence of prosthetic heart valve; Z68.25 Body mass index [BMI] 25.0-25.9, adult
CPT/HCPCS: 36415; 71045; 71275; 74174; 80048; 80061; 80305; 82550; 82607; 82728; 82746; 83036; 83540; 83550; 83605; 83735; 83880; 84443; 84484; 87389; 93005; 93306; 93970; 96365; 96366; 96375; 99285; J1200; J2270; J2405; J2543; J3370; J7030; J7040; Q9967

== ENCOUNTER 2019-01-21 20:22 | Inpatient (IN) | payer MEDICAID ==
[~2019-01-21] VITALS: Ht 185.4 cm; Wt 66.7 kg
[~2019-01-21 20:22] MED LIST changes: +ASPI-1158 PO; +DOCU-138 PO; +FERR325T23 PO
[2019-01-21] MEDS ORDERED: MORPHINE SULFATE 4 MG/ML CPJ (NOT FOR IM USE) IV STA (23:07)
[2019-01-21] MEDS ORDERED: ONDANSETRON HCL 4MG/2ML INJ IV STA (23:07)
[2019-01-21] MEDS ORDERED: NITROGLYCERIN OINT 1GM/INCH UDPKT TD ONE (23:15)
[2019-01-21] MEDS ORDERED: ASPIRIN 81MG TABLET PO ONE (23:15)
[2019-01-21 23:20] LABS: BASOPHILS % 0.5 % (0.0-2.0); EOSINOPHILS % 1.2 % (0.0-5.0); HEMATOCRIT. 33.2 % (42.0-52.0); HEMOGLOBIN. 10.9 g/dL (14.0-18.0); LYMPHOCYTES % 14.9 % (20.0-50.0); MEAN CORPUSCULAR HEMOGLOBIN 30.1 pg (28.0-32.0); MEAN CORPUSCULAR VOLUME 91.9 fL (80.0-94.0); MEAN PLATELET VOLUME 9.6 fl (7.4-10.4); MONOCYTES % 7.3 % (2.0-8.0); NEUTROPHILS % 76.1 % (40.0-76.0); PLATELET 122 x1000/uL (130-400); RED BLOOD CELL COUNT 3.61 mill/uL (4.7-6.1); RED CELL DISTRIBUTION WIDTH 17.1 % (11.6-14.6)
[2019-01-21 23:26] LABS: CHLORIDE 109 mEq/L (98-107)
[2019-01-21 23:29] LABS: INR 1.1; PARTIAL THROMBOPLASTIN TIME 30.2 sec (23.4-31.0); PROTHROMBIN TIME 10.9 sec (9.6-11.0)
[2019-01-21 23:32] LABS: ETHANOL BLOOD < 10 mg/dL
[2019-01-22 03:13] VITALS: BP 114/79
[2019-01-22 04:00] VITALS: BP 114/79
[2019-01-22] MEDS ORDERED: OMEP20CA10 PO (05:02)
[2019-01-22] MEDS ORDERED: ATOR10TA69 PO (05:06)
[2019-01-22] MEDS ORDERED: THIA100T72 PO (05:06)
[2019-01-22] MEDS ORDERED: MULT-1116 PO (05:06)
[2019-01-22] MEDS ORDERED: FOLI-43 PO (05:06)
[2019-01-22] MEDS ORDERED: METO-396 PO (05:06)
[2019-01-22] MEDS ORDERED: DOCU-272 PO (05:06)
[2019-01-22] MEDS ORDERED: FURO20TA4 PO (05:06)
[2019-01-22] MEDS ORDERED: HYDROCODONE/ACETAMINOPHEN 5/325MG TABLET PO PRN (07:00)
[2019-01-22 08:00] VITALS: BP 99/63
[2019-01-22 09:33] LABS: CHLORIDE 112 mEq/L (98-107)
[2019-01-22 09:41] LABS: HDL CHOLESTEROL 47 mg/dL (40-59); LDL CHOLESTEROL 43 mg/dL (5-100)
[2019-01-22] MEDS: ASPIRIN 81MG TABLET PO SCH (11:00)
[2019-01-22] MEDS: ENOXAPARIN 40MG/0.4ML SYR SUBCUT SCH (11:00)
[2019-01-22 11:46] LABS: *AMPHETAMINES SCREEN URINE NEGATIVE (NEGATIVE); *BARBITURATES SCREEN URINE NEGATIVE (NEGATIVE); *BENZODIAZEPINES SCREEN URINE NEGATIVE (NEGATIVE); CANNABINOID URINE SCREEN NEGATIVE (NEGATIVE)
[2019-01-22 11:51] LABS: METHADONE URINE SCREEN NEGATIVE (NEGATIVE); OPIATES URINE SCREEN PRESUMTIVE POSITIVE (NEGATIVE)
[2019-01-22 11:54] LABS: *COCAINE SCREEN URINE NEGATIVE (NEGATIVE)
[2019-01-22 11:55] LABS: PHENCYCLIDINE URINE SCREEN NEGATIVE (NEGATIVE)
[2019-01-22 12:00] VITALS: BP 134/65
[2019-01-22 16:00] VITALS: BP 129/69
[2019-01-22] MEDS ORDERED: IPRATROPIUM/ALBUTEROL 0.5-3(2.5)MG/3ML NEB HHN PRN (16:30)
[2019-01-22 17:01] LABS: CREATINE KINASE MB FRACTION 4.1 ng/mL (0.5-3.6)
[2019-01-22] MEDS: BUDESONIDE 0.5MG/2ML NEB HHN SCH (21:21)
[2019-01-22] MEDS: IPRATROPIUM/ALBUTEROL 0.5-3(2.5)MG/3ML NEB HHN SCH (21:21)
[2019-01-22 22:52] LABS: CLARITY URINE CLEAR (CLEAR); COLOR URINE DARK YELLOW (YELLOW); KETONES URINE NEGATIVE (NEGATIVE); LEUKOCYTE ESTERASE URINE NEGATIVE (NEGATIVE); NITRITE URINE NEGATIVE (NEGATIVE); OCCULT BLOOD URINE NEGATIVE (NEGATIVE); PH URINE 5.5 (4.5-8.0); PROTEIN URINE NEGATIVE (NEGATIVE); SPECIFIC GRAVITY URINE 1.017 (1.005-1.030)
[2019-01-23] MEDS: IPRATROPIUM/ALBUTEROL 0.5-3(2.5)MG/3ML NEB HHN SCH ×3 (01:57→20:47)
[2019-01-23] MEDS: BUDESONIDE 0.5MG/2ML NEB HHN SCH ×2 (08:14→20:47)
[2019-01-23 08:38] VITALS: BP 116/80
[2019-01-23 08:39] LABS: BASOPHILS % 0.3 % (0.0-2.0); EOSINOPHILS % 0.9 % (0.0-5.0); HEMATOCRIT. 28.7 % (42.0-52.0); HEMOGLOBIN. 9.5 g/dL (14.0-18.0); LYMPHOCYTES % 15.9 % (20.0-50.0); MEAN CORPUSCULAR HEMOGLOBIN 30.1 pg (28.0-32.0); MEAN CORPUSCULAR VOLUME 91.4 fL (80.0-94.0); MEAN PLATELET VOLUME 7.6 fl (7.4-10.4); MONOCYTES % 12.4 % (2.0-8.0); NEUTROPHILS % 70.5 % (40.0-76.0); PLATELET 61 x1000/uL (130-400); RED BLOOD CELL COUNT 3.15 mill/uL (4.7-6.1); RED CELL DISTRIBUTION WIDTH 17.2 % (11.6-14.6)
[2019-01-23] MEDS: ASPIRIN 81MG TABLET PO SCH ×2 (09:00→10:34)
[2019-01-23] MEDS: ENOXAPARIN 40MG/0.4ML SYR SUBCUT SCH (09:00)
[2019-01-23 09:10] LABS: CHLORIDE 111 mEq/L (98-107)
[2019-01-23 09:24] LABS: CREATINE KINASE 150 IU/L (39-308)
[2019-01-23 09:25] LABS: PHOSPHORUS 2.6 mg/dL (2.5-4.9)
[2019-01-23 09:30] LABS: CREATINE KINASE MB FRACTION 2.1 ng/mL (0.5-3.6)
[2019-01-23 10:32] VITALS: BP 134/92
[2019-01-23 13:00] VITALS: BP 126/80
[2019-01-23 13:01] VITALS: BP 127/85
[2019-01-23 18:13] VITALS: BP 123/86
[2019-01-23] MEDS: MORPHINE SULFATE 4 MG/ML CPJ (NOT FOR IM USE) IV PRN (18:39)
[2019-01-23 20:00] VITALS: BP 143/85
[2019-01-24] VITALS: BP 114/84
[2019-01-24] MEDS: IPRATROPIUM/ALBUTEROL 0.5-3(2.5)MG/3ML NEB HHN SCH ×3 (02:28→20:45)
[2019-01-24 04:00] VITALS: BP 104/53
[2019-01-24 06:27] LABS: BASOPHILS % 0.2 % (0.0-2.0); EOSINOPHILS % 1.1 % (0.0-5.0); HEMATOCRIT. 29.1 % (42.0-52.0); HEMOGLOBIN. 9.6 g/dL (14.0-18.0); LYMPHOCYTES % 18.8 % (20.0-50.0); MEAN CORPUSCULAR HEMOGLOBIN 30.2 pg (28.0-32.0); MEAN CORPUSCULAR VOLUME 91.9 fL (80.0-94.0); MEAN PLATELET VOLUME 7.8 fl (7.4-10.4); MONOCYTES % 10.7 % (2.0-8.0); NEUTROPHILS % 69.2 % (40.0-76.0); PLATELET 60 x1000/uL (130-400); RED BLOOD CELL COUNT 3.17 mill/uL (4.7-6.1); RED CELL DISTRIBUTION WIDTH 17.4 % (11.6-14.6)
[2019-01-24 07:29] LABS: CHLORIDE 110 mEq/L (98-107)
[2019-01-24 07:38] LABS: PHOSPHORUS 3.3 mg/dL (2.5-4.9)
[2019-01-24 08:00] VITALS: BP 115/68
[2019-01-24] MEDS: BUDESONIDE 0.5MG/2ML NEB HHN SCH ×2 (08:34→20:43)
[2019-01-24] MEDS: ASPIRIN 81MG TABLET PO SCH (09:43)
[2019-01-24 12:00] VITALS: BP 120/70
[2019-01-24 16:00] VITALS: BP 127/86
[2019-01-24 20:00] VITALS: BP 131/79
[2019-01-24] MEDS ORDERED: GABAPENTIN 100MG CAPSULE PO SCH (21:00)
[2019-01-24] MEDS: MORPHINE SULFATE 4 MG/ML CPJ (NOT FOR IM USE) IV PRN (23:17)
[2019-01-25] VITALS: BP 134/93
[2019-01-25] MEDS: IPRATROPIUM/ALBUTEROL 0.5-3(2.5)MG/3ML NEB HHN SCH ×2 (02:17→08:15)
[2019-01-25] MEDS: MORPHINE SULFATE 4 MG/ML CPJ (NOT FOR IM USE) IV PRN (02:55)
[2019-01-25 04:00] VITALS: BP 133/75
[2019-01-25 06:05] LABS: BASOPHILS % 0.2 % (0.0-2.0); EOSINOPHILS % 0.9 % (0.0-5.0); HEMATOCRIT. 29.5 % (42.0-52.0); HEMOGLOBIN. 9.5 g/dL (14.0-18.0); LYMPHOCYTES % 13.1 % (20.0-50.0); MEAN CORPUSCULAR HEMOGLOBIN 29.8 pg (28.0-32.0); MEAN CORPUSCULAR VOLUME 92.4 fL (80.0-94.0); MONOCYTES % 10.3 % (2.0-8.0); NEUTROPHILS % 75.5 % (40.0-76.0); PLATELET 59 x1000/uL (130-400); RED BLOOD CELL COUNT 3.19 mill/uL (4.7-6.1); RED CELL DISTRIBUTION WIDTH 17.2 % (11.6-14.6)
[2019-01-25 07:09] LABS: CHLORIDE 108 mEq/L (98-107)
[2019-01-25 07:14] LABS: PHOSPHORUS 3.4 mg/dL (2.5-4.9)
[2019-01-25 08:00] VITALS: BP_SYST 91; BP_SYST 95; BP_DIAS 35; BP_DIAS 70
[2019-01-25] MEDS: BUDESONIDE 0.5MG/2ML NEB HHN SCH (08:15)
[2019-01-25] MEDS: ASPIRIN 81MG TABLET PO SCH (10:02)
[2019-01-25] MEDS ORDERED: GABA-529 PO (11:37)
[2019-01-25 12:01] VITALS: BP 109/81
[2019-01-25 14:55] VITALS: BP 109/81
== END 2019-01-25 15:21 | disposition home or self-care (01) | DRG 469 ==
LOC: ER 20:22 → 7WST 23:47 → EDBEDREQ 23:52 → EDBEDREQTM 23:52 → ENRESERV 01-22 02:32 → 5WST 01-23 22:25
PROVIDERS: ADMIT Internal Medicine; ATTEND Internal Medicine
DX: N17.9 Acute kidney failure, unspecified (principal); J96.21 Acute and chronic respiratory failure with hypoxia; E43 Unspecified severe protein-calorie malnutrition; D61.818 Other pancytopenia; I50.9 Heart failure, unspecified; I13.0 Hypertensive heart and chronic kidney disease with heart failure and stage 1 through stage 4 chronic kidney disease, or unspecified chronic kidney disease; I51.3 Intracardiac thrombosis, not elsewhere classified; R16.1 Splenomegaly, not elsewhere classified; Q87.40 Marfan syndrome, unspecified; J43.9 Emphysema, unspecified; I13.10 Hypertensive heart and chronic kidney disease without heart failure, with stage 1 through stage 4 chronic kidney disease, or unspecified chronic kidney disease; N18.2 Chronic kidney disease, stage 2 (mild); K74.60 Unspecified cirrhosis of liver; B19.20 Unspecified viral hepatitis C without hepatic coma; F10.10 Alcohol abuse, uncomplicated; F14.10 Cocaine abuse, uncomplicated; R07.89 Other chest pain; F17.210 Nicotine dependence, cigarettes, uncomplicated; I25.10 Atherosclerotic heart disease of native coronary artery without angina pectoris; Z82.49 Family history of ischemic heart disease and other diseases of the circulatory system; Z83.3 Family history of diabetes mellitus; Z95.1 Presence of aortocoronary bypass graft; Z95.2 Presence of prosthetic heart valve; Z99.3 Dependence on wheelchair; Z71.6 Tobacco abuse counseling; I71.9 Aortic aneurysm of unspecified site, without rupture; Z68.1 Body mass index [BMI] 19.9 or less, adult
CPT/HCPCS: 36415; 71045; 76700; 80048; 80061; 80076; 80305; 80320; 82550; 82553; 83735; 83880; 84100; 84484; 86022; 93005; 93970; 94640; 96374; 96375; 99285; 99406; J1650; J2270; J2405; J7620; J7626; G0480